=== PATIENT | male | born 1930 | race Caucasian/White ===

== ENCOUNTER → 2016-03-17 | Outpatient (CLI) | payer MEDICARE ==
[~2016-03-17] MED LIST: ASPI81CH37 CHEW; LESC80TA; LISI-515 PO; LISI-591; PROT40TA PO; VIAG25TA; [UNRECOGNIZED DRUG - CODE] PO
[2016-03-17 08:23] LABS: MEAN CORPUSCULAR HEMOGLOBIN 29.5 PG (27.0-34.0); MEAN CORPUSCULAR HGB CONC 34.3 % (32.0-36.0); PLATELET COUNT 231 TH/MM3 (150-450); RED CELL DISTRIBUTION WIDTH 12.4 % (11.6-17.2); REVIEW FLAG FINAL; WHITE BLOOD COUNT 7.1 TH/MM3 (4.0-11.0)
[2016-03-17 08:47] LABS: ALT (GPT) 23 U/L (12-78); ANION GAP 10 MEQ/L (5-15); AST (GOT) 27 U/L (15-37); BICARBONATE 28.4 MEQ/L (21.0-32.0); BLOOD UREA NITROGEN 25 MG/DL (7-18); CHLORIDE 104 MEQ/L (98-107); GLOMERULAR FILTRATION RATE 44 ML/MIN (>89); GLUCOSE,FASTING 91 MG/DL (74-99); POTASSIUM 3.9 MEQ/L (3.5-5.1); SODIUM (NA) 142 MEQ/L (136-145)
[2016-03-17 08:50] LABS: ALKALINE PHOSPHATASE 78 U/L (45-117); HDL CHOLESTEROL 47.2 MG/DL (40.0-60.0); LDL CHOLESTEROL 36 MG/DL (0-99); LDL CHOLESTEROL DIRECT 49 MG/DL (0-99)
== END ==
LOC: CLAB 08:07
PROVIDERS: ATTEND Internal Medicine
DX: I10 Essential (primary) hypertension (principal); E78.5 Hyperlipidemia, unspecified
CPT/HCPCS: 36415; 80053; 80061; 83721; 85027

== ENCOUNTER 2016-04-01 12:57 | Emergency (ER) | payer MEDICARE ==
[~2016-04-01 12:57] MED LIST changes: -ASPI81CH37 CHEW; -LISI-515 PO; -PROT40TA PO; -[UNRECOGNIZED DRUG - CODE] PO
[2016-04-01 12:59] VITALS: BP 134/61; PULSE 115; RESP 14; TEMP 98.6; O2SAT 97
== END 2016-04-01 14:45 | disposition left against medical advice (07) ==
LOC: NED 12:57
DX: T14.8 Other injury of unspecified body region (principal)
CPT/HCPCS: 99281

== ENCOUNTER 2016-04-28 14:44 | Inpatient (IN) | payer MEDICARE, BC ==
[2016-04-28] VITALS (7 sets, daily range): BP systolic 96–117; BP diastolic 59–74; PULSE 78–105; RESP 16–20; TEMP 97.9; O2SAT 92–99
[~2016-04-28] VITALS: Ht 177.8 cm; Wt 81.5 kg
[2016-04-28] MEDS ORDERED: SODIUM CHLORIDE 0.9% FLUSH 5 ML FLUSH IVF PRN (15:00)
--- NOTE | 2016-04-28 15:08 | PD ---
HPI . Loss of appetite Chief Complaint: GI Complaint Time Seen by Provider: 14:55 Travel History International Travel<30 days: No Contact w/Intl Traveler<30days: No Traveled to known affect area: No History of Present Illness HPI Patient presents with a three-week history of loss of appetite. He states that he just does not have the desire to eat. Having any mechanical issue with eating. He denies any abdominal pain. He is not having any vomiting or diarrhea. He states that he is not depressed. He reports adequate access to food. He reports no recent change in his social life. He admits to a 20-30 pound weight loss over the last 3 weeks. [facility] Past Medical History Cardiovascular Problems: Yes High Cholesterol: Yes Diabetes: No Diminished Hearing: No Hypertension: Yes Past Surgical History Cardiac Surgery: Yes (CARIDAC STENT) Other Surgery: Yes (KIDNEY STONES) Social History Alcohol Use: Yes (2 MARTINIS PER NIGHT) Tobacco Use: No Substance Use: No Allergies-Medications (Allergen,Severity, Reaction): Coded Allergies: No Known Allergies (Verified , 04/28/16) Reported Meds & Prescriptions Reported Meds & Active Scripts Active Reported Aspirin Low Dose (Aspirin) 81 Mg Chew 81 Mg CHEW DAILY Lescol (Fluvastatin Sodium) 20 Mg Cap 80 Mg PO DAILY Lisinopril 20 Mg Tab 20 Mg PO DAILY Review of Systems Except as stated in HPI: all other systems reviewed are Neg General / Constitutional: No: Fever, Chills HENT: No: Headaches Cardiovascular: No: Chest Pain or Discomfort Respiratory: No: Cough, Shortness of Breath Gastrointestinal: Positive: Loss of Appetite, No: Nausea, Vomiting, Diarrhea, Abdominal Pain, Indigestion, Dysphagia Genitourinary: No: Urgency, Frequency, Dysuria Neurologic: No: Weakness, Dizziness Psychiatric: No: Depression Physical Exam Narrative GENERAL: Slightly disheveled appearing older man who is in no acute distress. He answers questions with very short answers. SKIN: Warm and dry. Good skin turgor. HEAD: Atraumatic. Normocephalic. EYES: Pupils equal and round. Conjunctivae are pink. ENT: No nasal bleeding or discharge. Mucous membranes pink and moist. NECK: Trachea midline. Neck is supple. CARDIOVASCULAR: Regular rate and rhythm. Heart rate is 105. RESPIRATORY: No accessory muscle use. Lungs are clear with full air movement throughout. GASTROINTESTINAL: Abdomen soft, non-tender, nondistended. MUSCULOSKELETAL: No obvious deformities. No edema. NEUROLOGICAL: Awake and alert. No obvious cranial nerve deficits. Motor grossly within normal limits. Normal speech. PSYCHIATRIC: Appropriate mood and affect; insight and judgment normal. Data Data Last Documented VS Vital Signs Date Time Temp Pulse Resp B/P Pulse Ox O2 Delivery O2 Flow Rate FiO2 04/28/16 15:15 97 20 111/71 97 Room Air 04/28/16 14:46 97.9 Orders Complete Blood Count With Diff (04/28/16 14:56) Comprehensive Metabolic Panel (04/28/16 14:56) Lipase (04/28/16 14:56) Urinalysis - C+S If Indicated (04/28/16 14:56) Iv Access Insert/Monitor (04/28/16 14:56) Ecg Monitoring (04/28/16 14:56) Oximetry (04/28/16 14:56) Sodium Chloride 0.9% Flush (Ns Flush) (04/28/16 15:00) Electrocardiogram (04/28/16 14:56) Labs Laboratory Tests Test 04/28/16 04/28/16 15:10 15:18 White Blood Count 7.2 TH/MM3 Red Blood Count 5.33 MIL/MM3 Hemoglobin 15.3 GM/DL Hematocrit 46.2 % Mean Corpuscular Volume 86.7 FL Mean Corpuscular Hemoglobin 28.7 PG Mean Corpuscular Hemoglobin 33.1 % Concent Red Cell Distribution Width 12.0 % Platelet Count 246 TH/MM3 Mean Platelet Volume 8.2 FL Neutrophils (%) (Auto) 77.9 % Lymphocytes (%) (Auto) 10.5 % Monocytes (%) (Auto) 9.1 % Eosinophils (%) (Auto) 1.7 % Basophils (%) (Auto) 0.8 % Neutrophils # (Auto) 5.5 TH/MM3 Lymphocytes # (Auto) 0.8 TH/MM3 Monocytes # (Auto) 0.7 TH/MM3 Eosinophils # (Auto) 0.1 TH/MM3 Basophils # (Auto) 0.1 TH/MM3 CBC Comment DIFF FINAL Differential Comment Urine Collection Type CLEAN CATCH Urine Color YELLOW Urine Turbidity CLEAR Urine pH 5.5 Urine Specific [place] 1.016 Urine Protein 30 mg/dL Urine Glucose (UA) NEG mg/dL Urine Ketones 15 mg/dL Urine Occult Blood TRACE Urine Nitrite NEG Urine Bilirubin NEG Urine Leukocyte Esterase NEG Urine RBC 0-3 /hpf Urine WBC 0-2 /hpf Urine Squamous Epithelial 6-8 /hpf Cells Urine Amorphous Sediment SMALL Urine Fine Granular Casts 10-15 /lpf Microscopic Urinalysis Comment CULT NOT INDICATED Urine Collection Time 15:18 [facility] Medical Decision Making Medical Screen Exam Complete: Yes Emergency Medical Condition: Yes Interpretation(s) EKG shows a sinus rhythm with a right bundle branch block. He has no old EKGs for comparison. Differential Diagnosis Differential diagnosis includes depression, metabolic disorder, infection, obstruction Narrative Course Patient presents for the evaluation of loss of appetite. CBC Diagram 04/28/16 15:10 UA is basically negative. Care is being turned over to Dr. Morales. Diagnosis Primary Impression: Anorexia Faith Arango MD Apr 28, 2016 15:08
[2016-04-28 15:17] LABS: AUTOMATED NEUTROPHIL # 5.5 TH/MM3 (1.8-7.7); BASOPHIL # 0.1 TH/MM3 (0-0.2); BASOPHIL % 0.8 % (0.0-2.0); EOSINOPHIL # 0.1 TH/MM3 (0-0.4); EOSINOPHIL % 1.7 % (0.0-4.0); HEMATOCRIT 46.2 % (39.0-51.0); HEMO FLAGS DIFF FINAL; LYMPH % 10.5 % (9.0-44.0); LYMPHOCYTE # 0.8 TH/MM3 (1.0-4.8); MEAN CELL VOLUME 86.7 FL (80.0-100.0); MEAN CORPUSCULAR HEMOGLOBIN 28.7 PG (27.0-34.0); MEAN CORPUSCULAR HGB CONC 33.1 % (32.0-36.0); MONO % 9.1 % (0.0-8.0); NEUT % 77.9 % (16.0-70.0); PLATELET COUNT 246 TH/MM3 (150-450); RED BLOOD COUNT 5.33 MIL/MM3 (4.50-5.90); WHITE BLOOD COUNT 7.2 TH/MM3 (4.0-11.0)
[2016-04-28 15:18] LABS: BLOOD, URINE TRACE (NEG); GLUCOSE,URINE NEG (NEG); KETONE, URINE 15 mg/dL (NEG); NITRITE,URINE NEG (NEG); PH, URINE 5.5 (5.0-8.5)
[2016-04-28] MEDS ORDERED: LISI-515 PO (15:25)
[2016-04-28] MEDS ORDERED: [UNRECOGNIZED DRUG - CODE] PO (15:25)
[2016-04-28] MEDS ORDERED: ASPI81CH37 CHEW (15:26)
[2016-04-28 15:34] LABS: METHOD OF COLLECTION CLEAN CATCH; RBC, URINE 0-3 /hpf (0-3); URINE COLOR YELLOW (YELLW/STRAW); WBC, URINE 0-2 /hpf (0-5)
[2016-04-28 15:35] LABS: COMMENT (UR) CULT NOT INDICATED; CULTURE IF INDICATED CULT NOT INDICATED
[2016-04-28 15:43] LABS: CHLORIDE 102 MEQ/L (98-107); POTASSIUM 3.9 MEQ/L (3.5-5.1); SODIUM (NA) 142 MEQ/L (136-145)
[2016-04-28 15:47] LABS: ANION GAP 20 MEQ/L (5-15); BICARBONATE 20.2 MEQ/L (21.0-32.0); BLOOD UREA NITROGEN 45 MG/DL (7-18)
[2016-04-28 15:49] LABS: ALT (GPT) 22 U/L (12-78); AST (GOT) 21 U/L (15-37)
[2016-04-28 15:50] LABS: GLOMERULAR FILTRATION RATE 27 ML/MIN (>89)
[2016-04-28 15:52] LABS: ALKALINE PHOSPHATASE 98 U/L (45-117)
--- NOTE | 2016-04-28 16:29 | RADHPO ---
EXAM DATE/TIME: 04/28/2016 16:04 [facility] COMPARISON: No previous studies available for comparison. INDICATIONS : Loss of appetite for three weeks. ORAL CONTRAST: No oral contrast ingested. RADIATION DOSE: 21.79 CTDIvol (mGy) MEDICAL HISTORY : Cardiovascular disease. Hypertension. Hypercholesterolemia. SURGICAL HISTORY : None. ENCOUNTER: Initial ACUITY: 3 weeks PAIN SCALE: 0/10 LOCATION: abdomen TECHNIQUE: Volumetric scanning of the abdomen and pelvis was performed. Using automated exposure control and ad justment of the mA and/or kV according to patient size, radiation dose was kept as low as reasonably achievable to obtain optimal diagnostic quality images. FINDINGS: LOWER LUNGS: The visualized lower lungs are clear. LIVER: Homogeneous density without lesion. There is no dilation of the biliary tree. There is minimal depen dent density in the gallbladder which may reflect presence of tiny stones or radiodense sludge. No ev idence of wall thickening or pericholecystic inflammation.. SPLEEN: Normal size without lesion. PANCREAS: Within normal limits. KIDNEYS: Tiny renal cysts. Tiny nonobstructing collecting system stones present bilaterally. ADRENAL GLANDS: Within normal limits. VASCULAR: There is no aortic aneurysm. BOWEL/MESENTERY: Distal colonic diverticula. No evidence of abnormal dilatation, wall thickening or focal inflammatory change. No evidence of ascites or pneumoperitoneum. ABDOMINAL WALL: Within normal limits. RETROPERITONEUM: There is no lymphadenopathy. BLADDER: No wall thickening or mass. REPRODUCTIVE: Within normal limits. INGUINAL: There is no lymphadenopathy or hernia. MUSCULOSKELETAL: Severe S-shaped thoracolumbar scoliosis. Degenerative changes in the spine and hips. CONCLUSION: No acute CT findings in the abdomen or pelvis. Christo Rosado MD on April 28, 2016 at 16:24 Board Certified Radiologist. This report was verified electronically.
--- NOTE | 2016-04-28 16:41 | PD ---
Physical Exam Narrative Patient was seen by ED physician and signed out to me. Data Data Last Documented VS Vital Signs Date Time Temp Pulse Resp B/P Pulse Ox O2 Delivery O2 Flow Rate FiO2 04/28/16 16:33 95 20 96/73 92 Room Air 04/28/16 14:46 97.9 Orders Complete Blood Count With Diff (04/28/16 14:56) Comprehensive Metabolic Panel (04/28/16 14:56) Lipase (04/28/16 14:56) Urinalysis - C+S If Indicated (04/28/16 14:56) Iv Access Insert/Monitor (04/28/16 14:56) Ecg Monitoring (04/28/16 14:56) Oximetry (04/28/16 14:56) Sodium Chloride 0.9% Flush (Ns Flush) (04/28/16 15:00) Electrocardiogram (04/28/16 14:56) Ct Abd/Pel W/O Iv Contrast (04/28/16 15:59) Ns (Bolus) Inj (04/28/16 17:00) Labs Laboratory Tests Test 04/28/16 04/28/16 15:10 15:18 White Blood Count 7.2 TH/MM3 Red Blood Count 5.33 MIL/MM3 Hemoglobin 15.3 GM/DL Hematocrit 46.2 % Mean Corpuscular Volume 86.7 FL Mean Corpuscular Hemoglobin 28.7 PG Mean Corpuscular Hemoglobin 33.1 % Concent Red Cell Distribution Width 12.0 % Platelet Count 246 TH/MM3 Mean Platelet Volume 8.2 FL Neutrophils (%) (Auto) 77.9 % Lymphocytes (%) (Auto) 10.5 % Monocytes (%) (Auto) 9.1 % Eosinophils (%) (Auto) 1.7 % Basophils (%) (Auto) 0.8 % Neutrophils # (Auto) 5.5 TH/MM3 Lymphocytes # (Auto) 0.8 TH/MM3 Monocytes # (Auto) 0.7 TH/MM3 Eosinophils # (Auto) 0.1 TH/MM3 Basophils # (Auto) 0.1 TH/MM3 CBC Comment DIFF FINAL Differential Comment Sodium Level 142 MEQ/L Potassium Level 3.9 MEQ/L Chloride Level 102 MEQ/L Carbon Dioxide Level 20.2 MEQ/L Anion Gap 20 MEQ/L Blood Urea Nitrogen 45 MG/DL Creatinine 2.30 MG/DL Estimat Glomerular Filtration 27 ML/MIN Rate Random Glucose 89 MG/DL Calcium Level 9.6 MG/DL Total Bilirubin 1.0 MG/DL Aspartate Amino Transf 21 U/L (AST/SGOT) Alanine Aminotransferase 22 U/L (ALT/SGPT) Alkaline Phosphatase 98 U/L Total Protein 8.0 GM/DL Albumin 3.5 GM/DL Lipase 406 U/L Urine Collection Type CLEAN CATCH Urine Color YELLOW Urine Turbidity CLEAR Urine pH 5.5 Urine Specific [place] 1.016 Urine Protein 30 mg/dL Urine Glucose (UA) NEG mg/dL Urine Ketones 15 mg/dL Urine Occult Blood TRACE Urine Nitrite NEG Urine Bilirubin NEG Urine Leukocyte Esterase NEG Urine RBC 0-3 /hpf Urine WBC 0-2 /hpf Urine Squamous Epithelial 6-8 /hpf Cells Urine Amorphous Sediment SMALL Urine Fine Granular Casts 10-15 /lpf Microscopic Urinalysis Comment CULT NOT INDICATED Urine Collection Time 15:18 MDM Supervised Visit with [facility]: No Interpretation(s) 1637 PM. CBC within normal limit. BUN 45. Creatinine 2.3. GFR 27. Lipase 406. UA is positive for proteins, ketones, negative WBC RBC. CT scan abdomen and pelvis without contrast shows no acute CT findings. Narrative Course Normal saline solution 1 L IV bolus. Normal saline solution 100 cc an hour. Diagnosis Primary Impression: Dehydration Additional Impression: Acute kidney injury Admitting Information Admitting Physician Requests: Observation Catracho Morales MD Apr 28, 2016 16:41
[2016-04-28] MEDS ORDERED: SODIUM CHLOR 0.9% 1000 ML INJ 1,000 ML IV SCH (16:50)
[2016-04-28] MEDS ORDERED: SODIUM CHLORIDE 0.9% FLUSH 5 ML FLUSH FLUSH PRN (17:00)
[2016-04-28] MEDS ORDERED: SODIUM CHLOR 0.9% 1000 ML INJ 1,000 ML IV ONE ×3 (17:00→18:00)
[2016-04-28] MEDS ORDERED: ONDANSETRON HCL 4 MG/2 ML VIAL IVP PRN (17:00)
--- NOTE | 2016-04-28 17:05 | HHI.HP ---
[facility] Mel Conrad MD Admission Diagnosis dehydration. Acute kidney injury. Diagnoses: Chief Complaint: Dehydration Travel History International Travel<30 Days: No Contact w/Intl Traveler <30 Da: No Traveled to Known Affected Are: No History of Present Illness Patient is a 86-year-old gentleman was quite pleasant and says that the last 2 weeks he is unable to eat. He notes no abdominal pain nausea or vomiting. Bloody stool. He does appear dehydrated with hypotension and acute kidney injury. He says for 3 weeks he just hasn't had appetite and his friend told him go to his doctor so he went and his doctor sent to the emergency room. Patient says otherwise he is doing "fine". He has no other medical complaints. On further exam patient does appear with elevated anion gap and with some evidence of acidosis probably from acute kidney injury. Review of Systems Constitutional: DENIES: Diaphoretic episodes, Fatigue, Fever, Weight gain, Weight loss, Chills, Dizziness, Change in appetite, Night Sweats Endocrine: DENIES: Heat/cold intolerance, Polydipsia, Polyuria, Polyphagia Eyes: DENIES: Blurred vision, Diplopia, Eye inflammation, Eye pain, Vision loss , Photosensitivity, Double Vision Ears, nose, mouth, throat: DENIES: Tinnitus, Hearing loss, Vertigo, Nasal discharge, Oral lesions, Throat pain, Hoarseness, Ear Pain, Running Nose, Epistaxis, Sinus Pain, Toothache, Odynophagia Respiratory: DENIES: Apneas, Cough, Snoring, Wheezing, Hemoptysis, Sputum production, Shortness of breath Cardiovascular: DENIES: Chest pain, Palpitations, Syncope, Dyspnea on Exertion , PND, Lower Extremity Edema, Orthopnea, Claudication Gastrointestinal: COMPLAINS OF: Anorexia, DENIES: Abdominal pain, Black stools , Bloody stools, Constipation, Diarrhea, Nausea, Vomiting, Difficulty Swallowing Genitourinary: DENIES: Sexual dysfunction, Urinary frequency, Urinary incontinence, Urgency, Hematuria, Dysuria, Nocturia, Penile Discharge, Testicular Pain, Testicular Swelling Musculoskeletal: DENIES: Joint pain, Muscle aches, Stiffness, Joint Swelling, Back pain, Neck pain Integumentary: DENIES: Abnormal pigmentation, Nail changes, Pruritus, Rash Hematologic/lymphatic: DENIES: Bruising, Lymphadenopathy Immunologic/allergic: DENIES: Eczema, Urticaria Neurologic: DENIES: Abnormal gait, Headache, Localized weakness, Paresthesias, Seizures, Speech Problems, Tremor, Poor Balance Psychiatric: DENIES: Anxiety, Confusion, Mood changes, Depression, Hallucinations, Agitation, Suicidal Ideation, Homicidal Ideation, Delusions Past Family Social History Past Medical History Coronary artery disease with stent Hypertension hyperlipidemia Past Surgical History Cardiac stent Reported Medications Reviewed and the medical record Allergies: Coded Allergies: No Known Allergies (Verified , 04/28/16) Active Ordered Medications Reviewed and the medical record Family History Patient denies any family history of any medical problems Social History Lives alone, several martinis nightly, no tobacco Physical Exam Vital Signs Vital Signs Date Time Temp Pulse Resp B/P Pulse Ox O2 Delivery O2 Flow Rate FiO2 04/28/16 16:33 95 20 96/73 92 Room Air 04/28/16 15:15 97 20 111/71 97 Room Air 04/28/16 15:15 97 Room Air 04/28/16 14:46 97.9 105 16 106/69 97 Physical Exam GENERAL: This is a well-nourished, well-developed patient, in no apparent distress. Pleasant not cachectic SKIN: No rashes, ecchymoses or lesions. Cool and dry. HEAD: Atraumatic. Normocephalic. No temporal or scalp tenderness. EYES: Pupils equal round and reactive. Extraocular motions intact. No scleral icterus. No injection or drainage. ENT: Nose without bleeding, purulent drainage or septal hematoma. Throat without erythema, tonsillar hypertrophy or exudate. Uvula midline. Airway patent. NECK: Trachea midline. No JVD or lymphadenopathy. Supple, nontender, no meningeal signs. CARDIOVASCULAR: Regular rate and rhythm without murmurs, gallops, or rubs. RESPIRATORY: Clear to auscultation. Breath sounds equal bilaterally. No wheezes , rales, or rhonchi. GASTROINTESTINAL: Abdomen soft, non-tender, nondistended. No hepato-splenomegaly , or palpable masses. No guarding. Hypoactive bowel sounds MUSCULOSKELETAL: Extremities without clubbing, cyanosis, or edema. No joint tenderness, effusion, or edema noted. No calf tenderness. Negative Homans sign bilaterally. NEUROLOGICAL: Awake and alert. Cranial nerves II through XII intact. Motor and sensory grossly within normal limits. Five out of 5 muscle strength in all muscle groups. Normal speech. Laboratory Laboratory Tests Test 04/28/16 04/28/16 15:10 15:18 White Blood Count 7.2 Red Blood Count 5.33 Hemoglobin 15.3 Hematocrit 46.2 Mean Corpuscular Volume 86.7 Mean Corpuscular Hemoglobin 28.7 Mean Corpuscular Hemoglobin 33.1 Concent Red Cell Distribution Width 12.0 Platelet Count 246 Mean Platelet Volume 8.2 Neutrophils (%) (Auto) 77.9 Lymphocytes (%) (Auto) 10.5 Monocytes (%) (Auto) 9.1 Eosinophils (%) (Auto) 1.7 Basophils (%) (Auto) 0.8 Neutrophils # (Auto) 5.5 Lymphocytes # (Auto) 0.8 Monocytes # (Auto) 0.7 Eosinophils # (Auto) 0.1 Basophils # (Auto) 0.1 CBC Comment DIFF FINAL Differential Comment Sodium Level 142 Potassium Level 3.9 Chloride Level 102 Carbon Dioxide Level 20.2 Anion Gap 20 Blood Urea Nitrogen 45 Creatinine 2.30 Estimat Glomerular Filtration 27 Rate Random Glucose 89 Calcium Level 9.6 Total Bilirubin 1.0 Aspartate Amino Transf 21 (AST/SGOT) Alanine Aminotransferase 22 (ALT/SGPT) Alkaline Phosphatase 98 Total Protein 8.0 Albumin 3.5 Lipase 406 Urine Collection Type CLEAN CATCH Urine Color YELLOW Urine Turbidity CLEAR Urine pH 5.5 Urine Specific [place] 1.016 Urine Protein 30 Urine Glucose (UA) NEG Urine Ketones 15 Urine Occult Blood TRACE Urine Nitrite NEG Urine Bilirubin NEG Urine Leukocyte Esterase NEG Urine RBC 0-3 Urine WBC 0-2 Urine Squamous Epithelial 6-8 Cells Urine Amorphous Sediment SMALL Urine Fine Granular Casts 10-15 Microscopic Urinalysis Comment CULT NOT INDICATED Urine Collection Time 15:18 Result Diagram: 04/28/16 1510 04/28/[address] abdomen pelvis on my review shows no acute intra-abdominal findings Assessment and Plan Problem List: (1) Acute kidney injury ICD Code: N17.9 Status: Acute Plan: Likely due to dehydration, we'll continue IV hydration, follow renal ultrasound (2) Dehydration ICD Code: E86.0 Status: Acute Plan: Patient reports not eating in 3 weeks. 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
[2016-04-28 17:11] LABS: BLOOD GAS BASE EXCESS -9.3 mmol/L (-2-2); BLOOD GAS CARBOXYHEMOGLOBIN 1.9 % (0-4); BLOOD GAS HCO3 13 mmol/L (22-26); BLOOD GAS METHEMOGLOBIN 1.3 % (0-2); BLOOD GAS O2 HGB SATURATION 96 % (90-100); BLOOD GAS PCO2 17 mmHG (38-42); BLOOD GAS PO2 122 mmHG (61-120); BLOOD GAS TOTAL HGB 14.7 G/DL (12.0-16.0); TEMP CORR TO 98.6
[2016-04-28 17:13] LABS: CRITICAL VALUE YES; DRAW SITE RT RADIAL; FIO2 21 %; NUMBER OF ARTERIAL PUNCTURES 1; OXYGEN DEVICE ROOM AIR; STAT NO; ULNAR PULSE PRESENT
[2016-04-28 17:28] LABS: AMPHETAMINE, URINE NEG (NEG)
--- NOTE | 2016-04-28 17:28 | RADHPO ---
EXAM DATE/TIME: 04/28/2016 17:17 [facility] COMPARISON: No previous studies available for comparison. INDICATIONS : Altered mental status. RADIATION DOSE: 61.62 CTDIvol (mGy) MEDICAL HISTORY : Hypertension. SURGICAL HISTORY : None. ENCOUNTER: Initial ACUITY: 1 day PAIN SCALE: 0/10 LOCATION: cranial TECHNIQUE: Multiple contiguous axial images were obtained of the head. Using automated exposure control and adj ustment of the mA and/or kV according to patient size, radiation dose was kept as low as reasonably a chievable to obtain optimal diagnostic quality images. FINDINGS: CEREBRUM: The ventricles are normal for age. Age appropriate atrophy with mild age-appropriate microvascular de ep white matter ischemic demyelinization. No evidence of midline shift, mass lesion, hemorrhage or a cute infarction. No extra-axial fluid collections are seen. POSTERIOR FOSSA: The cerebellum and brainstem are intact. The 4th ventricle is midline. The cerebellopontine angle i s unremarkable. EXTRACRANIAL: The visualized portion of the orbits is intact. SKULL: The calvaria is intact. No evidence of skull fracture. CONCLUSION: Normal examination for a patient of this age. Warner Ricci MD on April 28, 2016 at 17:25 Board Certified Radiologist. This report was verified electronically.
[2016-04-28 17:29] LABS: BARBITURATES, URINE NEG (NEG)
--- NOTE | 2016-04-28 17:34 | RADHPO ---
EXAM DATE/TIME: 04/28/2016 17:12 [facility] COMPARISON: CT ABDOMEN & PELVIS W/O CONTRAST, April 28, 2016, 16:04. INDICATIONS : Chest pain. MEDICAL HISTORY : Hypertension. SURGICAL HISTORY : None. ENCOUNTER: Initial ACUITY: 1 day PAIN SCORE: 5/10 LOCATION: Bilateral chest FINDINGS: PA and lateral views of the chest demonstrate the lungs to be symmetrically aerated without evidence of mass, infiltrate or effusion. The cardiomediastinal contours are unremarkable. Osseous structure s are intact with marked scoliosis of the thoracic or lumbar spine to left and secondary chest deform ity. CONCLUSION: No acute disease. Warner Ricci MD on April 28, 2016 at 17:32 Board Certified Radiologist. This report was verified electronically.
[2016-04-28 17:39] LABS: COCAINE, URINE NEG (NEG)
[2016-04-28] MEDS ORDERED: SODIUM BICARBONATE 8.4% INJ 50 MEQ in SODIUM CHLOR 0.45% 1000 ML INJ 1,000 ML IV SCH (17:45)
[2016-04-28] MEDS: PANTOPRAZOLE SODIUM 40 MG VIAL IV PUSH SCH (17:51)
[2016-04-28] MEDS: SODIUM CHLOR 0.9% 1000 ML INJ 1,000 ML IV SCH (17:58)
[2016-04-28 21:07] LABS: BLOOD GAS BASE EXCESS -10.1 mmol/L (-2-2); BLOOD GAS CARBOXYHEMOGLOBIN 1.6 % (0-4); BLOOD GAS HCO3 14 mmol/L (22-26); BLOOD GAS METHEMOGLOBIN 1.4 % (0-2); BLOOD GAS O2 HGB SATURATION 95 % (90-100); BLOOD GAS OXYGEN CONTENT 17.2 Vol % (12.0-20.0); BLOOD GAS PCO2 25 mmHG (38-42); BLOOD GAS PO2 103 mmHG (61-120); BLOOD GAS TOTAL HGB 12.8 G/DL (12.0-16.0); CRITICAL VALUE YES; DRAW SITE RT RADIAL; FIO2 21 %; NUMBER OF ARTERIAL PUNCTURES 1; STAT NO; TEMP CORR TO 98.6; ULNAR PULSE Y
[2016-04-28 22:35] LABS: POTASSIUM 3.8 MEQ/L (3.5-5.1)
[2016-04-28 22:38] LABS: BICARBONATE 18.1 MEQ/L (21.0-32.0)
--- NOTE | 2016-04-28 23:01 | EKG ---
Date Performed: 04/28/2016 Time Performed: 14:58:50 PTAGE: 86 years EKG: Sinus tachycardia Right bundle branch block Inferior/lateral ST-T changes are nonspecific L ow QRS voltages in precordial leads Abnormal ECG NO PREVIOUS TRACING DOCTOR: Duane Hennessy Interpretating Date/Time 04/28/2016 22:59:46
[2016-04-29] VITALS (7 sets, daily range): BP systolic 112–133; BP diastolic 63–78; PULSE 69–74; RESP 16–20; TEMP 97.9–98.2; O2SAT 95–98
[2016-04-29 05:30] LABS: BASOPHIL % 0.7 % (0.0-2.0); EOSINOPHIL # 0.2 TH/MM3 (0-0.4); EOSINOPHIL % 2.8 % (0.0-4.0); HEMATOCRIT 39.2 % (39.0-51.0); HEMO FLAGS DIFF FINAL; LYMPH % 13.8 % (9.0-44.0); LYMPHOCYTE # 0.8 TH/MM3 (1.0-4.8); MEAN CELL VOLUME 87.1 FL (80.0-100.0); MEAN CORPUSCULAR HEMOGLOBIN 29.1 PG (27.0-34.0); MEAN CORPUSCULAR HGB CONC 33.4 % (32.0-36.0); MONO % 12.3 % (0.0-8.0); NEUT % 70.4 % (16.0-70.0); PLATELET COUNT 169 TH/MM3 (150-450); RED CELL DISTRIBUTION WIDTH 11.8 % (11.6-17.2); WHITE BLOOD COUNT 5.7 TH/MM3 (4.0-11.0)
[2016-04-29 06:01] LABS: POTASSIUM 3.9 MEQ/L (3.5-5.1)
[2016-04-29 06:04] LABS: BICARBONATE 21.4 MEQ/L (21.0-32.0)
--- NOTE | 2016-04-29 10:53 | HHI.PR ---
Subjective Remarks Patient seen today in follow-up for failure to thrive and anorexia. Patient says he has no desire to eat and food makes him nauseous. He is drinking liquids without difficulty. She has improvement in electrolytes and renal function. I discussed the patient's primary care doctor, Dr. souza who was concerned about the patient's kidney failure and who originally sent him to the emergency room I did update him on the patient's progress and improvement. Patient has no psychiatric history. Although he does drink a bit is not intoxicated. Patient is not tearful sad and does not desire to harm himself Objective Vitals Vital Signs Date Time Temp Pulse Resp B/P Pulse Ox O2 Delivery O2 Flow Rate FiO2 04/29/16 08:00 98.1 69 18 125/76 96 04/29/16 07:00 96 Room Air 04/29/16 07:00 74 16 112/69 96 Room Air 04/29/16 05:00 69 16 116/63 97 Room Air 04/29/16 01:10 74 16 119/72 98 Room Air 04/28/16 22:00 78 16 114/72 98 Room Air 04/28/16 19:18 84 16 117/74 97 Room Air 04/28/16 18:46 84 18 115/66 99 Room Air 04/28/16 17:55 84 18 104/59 97 Room Air 04/28/16 16:33 95 20 96/73 92 Room Air 04/28/16 15:15 97 20 111/71 97 Room Air 04/28/16 15:15 97 Room Air 04/28/16 14:46 97.9 105 16 106/69 97 I/O 04/28/16 04/28/16 04/28/16 04/29/16 04/29/16 04/29/16 07:00 15:00 23:00 07:00 15:00 23:00 Intake Total 4650 ml Output Total 1000 ml 1150 ml Balance 3650 ml -1150 ml Intake Oral 650 ml IV Total 4000 ml Output Urine Total 1000 ml 1150 ml # Voids 2 7 Result Diagram: 04/29/16 0510 04/29/16 0510 Imaging Last Impressions Abdomen/Pelvis CT 04/28/16 1559 Signed Impressions: Service Date/Time: Thursday, April 28, 2016 16:04 - CONCLUSION: No acute CT findings in the abdomen or pelvis. Christo Rosado MD Head CT 04/28/16 0000 Signed Impressions: Service Date/Time: Thursday, April 28, 2016 17:17 - CONCLUSION: Normal examination for a patient of this age. Warner Ricci MD Chest X-Ray 04/28/16 0000 Signed Impressions: Service Date/Time: Thursday, April 28, 2016 17:12 - CONCLUSION: No acute disease. Warner Ricci MD Objective Remarks GENERAL: This is a well-nourished, well-developed patient, in no apparent distress. CARDIOVASCULAR: Regular rate and rhythm without murmurs, gallops, or rubs. RESPIRATORY: Clear to auscultation. Breath sounds equal bilaterally. No wheezes , rales, or rhonchi. GASTROINTESTINAL: Abdomen soft, non-tender, nondistended. Normal active bowel sounds MUSCULOSKELETAL: Extremities without clubbing, cyanosis, or edema. NEURO: Alert & Oriented x4 to person, place, time, situation. Moves all ext x4 A/P Problem List: (1) Acute kidney injury ICD Code: N17.9 Status: Acute Plan: Improved Likely due to dehydration, we'll continue IV hydration, (2) Dehydration ICD Code: E86.0 Status: Acute Plan: Patient reports not eating in 3 weeks. He reports no appetite Swallow study pending Continue postop pump inhibitor, CT of the head unremarkable on my review (3) HTN (hypertension) ICD Code: I10 Status: Acute Plan: Will hold lisinopril due to acute kidney injury and hypotension Assessment and Plan Patient will require further inpatient care due to severe dehydration and anorexia Dietary consult pending We'll add liquid nutrients and multivitamins Discharge Planning Pending progress Physician Certification 2 Midnight Certification Type: Admission for Inpatient Services Order for Inpatient Services The services are ordered in accordance with Medicare regulations or non- Medicare payer requirements, as applicable. In the case of services not specified as inpatient-only, they are appropriately provided as inpatient services in accordance with the 2-midnight benchmark. Estimated LOS (days): 3 3 days is the estimated time the patient will need to remain in the hospital, assuming treatment plan goals are met and no additional complications. Post-Hospital Plan: Home Sunni Dowling MD Apr 29, 2016 10:53
[2016-04-29] MEDS: MULTIVITAMIN TAB PO SCH (12:00)
[2016-04-29] MEDS: SODIUM CHLORIDE 0.9% FLUSH 5 ML FLUSH FLUSH SCH ×2 (15:04→21:00)
[2016-04-29] MEDS: SODIUM CHLOR 0.9% 1000 ML INJ 1,000 ML IV SCH (15:04)
[2016-04-29] MEDS: PANTOPRAZOLE SODIUM 40 MG VIAL IV PUSH SCH (15:46)
[2016-04-30] VITALS: BP 106/70; PULSE 78; RESP 20; TEMP 97.9; O2SAT 97
[2016-04-30 07:07] LABS: POTASSIUM 4.1 MEQ/L (3.5-5.1)
[2016-04-30 07:13] LABS: BICARBONATE 23.4 MEQ/L (21.0-32.0)
[2016-04-30 08:08] VITALS: BP 115/60; PULSE 82; RESP 18; TEMP 98; O2SAT 99
[2016-04-30] MEDS: SODIUM CHLORIDE 0.9% FLUSH 5 ML FLUSH FLUSH SCH (08:16)
[2016-04-30] MEDS: MULTIVITAMIN TAB PO SCH (09:06)
[2016-04-30] MEDS ORDERED: PROT40TA PO (10:19)
--- NOTE | 2016-04-30 10:19 | HHI.FF ---
Face to Face Verification Diagnosis: (1) Anorexia (2) HTN (hypertension) Home Health Nursing Order: Medical education X Ray Consultant Order: To Evaluate: Living conditions/environment, Support services Order: To Provide: Long range planning, Community services I have seen patient Noel Ponce on 04/30/16. My clinical findings support the need for the requested home health care services because: Med compliance is questionable I certify that my clinical findings support that this patient is homebound because: Impaired cognitive ability/safety Need for psychosocial assistance Sunni Dowling MD Apr 30, 2016 10:19
--- NOTE | 2016-04-30 10:21 | HHI.DS ---
cc: Mel Conrad MD Discharge Summary Admission Date Apr 29, 2016 at 10:52 Discharge Date: Apr 30, 2016 Admitting Diagnosis dehydration. Acute kidney injury. (1) Acute kidney injury ICD Code: N17.9 (2) Dehydration ICD Code: E86.0 (3) HTN (hypertension) ICD Code: I10 Procedures none Brief History - From Admission Patient is a 86-year-old gentleman was quite pleasant and says that the last 2 weeks he is unable to eat. He notes no abdominal pain nausea or vomiting. Bloody stool. He does appear dehydrated with hypotension and acute kidney injury. He says for 3 weeks he just hasn't had appetite and his friend told him go to his doctor so he went and his doctor sent to the emergency room. Patient says otherwise he is doing "fine". He has no other medical complaints. On further exam patient does appear with elevated anion gap and with some evidence of acidosis probably from acute kidney injury. CBC/BMP: 04/29/16 0510 04/30/16 0615 Significant Findings Laboratory Tests Test 04/28/16 04/28/16 04/28/16 04/28/16 15:10 15:18 17:05 21:02 Neutrophils (%) (Auto) 77.9 % (16.0-70.0) Monocytes (%) (Auto) 9.1 % (0.0-8.0) Lymphocytes # (Auto) 0.8 TH/MM3 (1.0-4.8) Carbon Dioxide Level 20.2 MEQ/L (21.0-32.0) Anion Gap 20 MEQ/L (5-15) Blood Urea Nitrogen 45 MG/DL (7-18) Creatinine 2.30 MG/DL (0.60-1.30) Estimat Glomerular Filtration 27 ML/MIN (>89) Rate Lipase 406 U/L (73-393) Urine Protein 30 mg/dL (NEG-TRACE) Urine Ketones 15 mg/dL (NEG) Urine Occult Blood TRACE (NEG) Urine Squamous Epithelial 6-8 /hpf (0-5) Cells Blood Gas HCO3 13 mmol/L 14 mmol/L (22-26) (22-26) Blood Gas Base Excess -9.3 mmol/L -10.1 mmol/L (-2-2) (-2-2) Arterial Blood pH 7.50 (7.380-7.420) Arterial Blood Partial 17 mmHG (38-42) 25 mmHG (38-42) Pressure CO2 Arterial Blood Partial 122 mmHG Pressure O2 (61-120) Test 04/28/16 04/29/16 04/30/16 22:00 05:10 06:15 Chloride Level 110 MEQ/L 109 MEQ/L 108 MEQ/L (98-107) (98-107) (98-107) Carbon Dioxide Level 18.1 MEQ/L (21.0-32.0) Anion Gap 17 MEQ/L (5-15) Blood Urea Nitrogen 40 MG/DL (7-18) 37 MG/DL (7-18) 25 MG/DL (7-18) Creatinine 1.90 MG/DL 1.80 MG/DL 1.50 MG/DL (0.60-1.30) (0.60-1.30) (0.60-1.30) Estimat Glomerular Filtration 34 ML/MIN (>89) 36 ML/MIN (>89) 44 ML/MIN (>89) Rate Random Glucose 73 MG/DL (74-106) Calcium Level 7.9 MG/DL 8.4 MG/DL 8.3 MG/DL (8.5-10.1) (8.5-10.1) (8.5-10.1) Neutrophils (%) (Auto) 70.4 % (16.0-70.0) Monocytes (%) (Auto) 12.3 % (0.0-8.0) Lymphocytes # (Auto) 0.8 TH/MM3 (1.0-4.8) PE at Discharge GENERAL: This is a well-nourished, well-developed patient, in no apparent distress. CARDIOVASCULAR: Regular rate and rhythm without murmurs, gallops, or rubs. RESPIRATORY: Clear to auscultation. Breath sounds equal bilaterally. No wheezes , rales, or rhonchi. GASTROINTESTINAL: Abdomen soft, non-tender, nondistended. Normal active bowel sounds MUSCULOSKELETAL: Extremities without clubbing, cyanosis, or edema. NEURO: Alert & Oriented x4 to person, place, time, situation. Moves all ext x4 Pt update on day of discharge Patient seen and evaluated today in follow-up for anorexia. Dehydration resolved. Patient believes he will be able to eat today. Did discuss with patient that we had no functional difficulties. He is not psychotic. Patient will be discharged home Hospital Course This patient is a 6-year-old gentleman came in with acute dehydration secondary to not eating. He notes no functional difficulty. He was seen by speech therapy for cognitive and swallow assessments which he passed. Otherwise the patient did require IV hydration and was able to tolerate liquids. He did eat some food prior to his discharge Pt Condition on Discharge: Good Discharge Disposition: Disch w/ Home Health Serv Discharge Time: > 30 minutes Discharge Instructions DIET: Follow Instructions for: As Tolerated, No Restrictions Activities you can perform: Regular-No Restrictions Follow up Referrals: PCP Follow-up - 1 Week New Medications: Pantoprazole (Protonix) 40 Mg Tab 40 MG PO DAILY Reflux #30 Ref 0 TAB Continued Medications: Aspirin (Aspirin Low Dose) 81 Mg Chew 81 MG CHEW DAILY Ref 0 TAB Fluvastatin (Lescol) 20 Mg Cap 80 MG PO DAILY Cholesterol Management #60 Ref 0 CAP Discontinued Medications: Lisinopril (Lisinopril) 20 Mg Tab 20 MG PO DAILY #30 Ref 0 TAB Sunni Dowling MD Apr 30, 2016 10:21
== END 2016-04-30 11:23 | disposition home or self-care (01) | DRG 684 ==
LOC: PHED 14:44 → PHEDA 16:51 → PHEDH 20:51 → PH3B 04-29 08:21 → OBSVTOIN 04-29 10:52
PROVIDERS: ADMIT Hospitalist; ATTEND Hospitalist
DX: N17.9 Acute kidney failure, unspecified (principal); I95.9 Hypotension, unspecified; E86.0 Dehydration; R62.7 Adult failure to thrive; I10 Essential (primary) hypertension; E78.00 Pure hypercholesterolemia, unspecified
CPT/HCPCS: 36600; 70450; 71020; 74176; 80048; 80053; 80307; 81001; 82436; 82805; 83690; 85025; 93005; C9113; G0378; G8996-GN; G8997-GN; G8998-GN; G9168-GN; G9169-GN; G9170-GN; J7030

== ENCOUNTER 2016-06-17 13:40 | Inpatient (IN) | payer MEDICARE, OTHER ==
[~2016-06-17] VITALS: Ht 177.8 cm; Wt 71.6 kg
[~2016-06-17 13:40] MED LIST changes: +ASPI81CH37 CHEW; -LESC80TA; -LISI-591; +PROT40TA PO; -VIAG25TA; +[UNRECOGNIZED DRUG - CODE] PO
[2016-06-17 13:43] VITALS: BP 119/84; PULSE 120; RESP 18; O2SAT 99
--- NOTE | 2016-06-17 13:46 | PD ---
HPI Chief Complaint: generalized weakness Time Seen by Provider: 13:46 Travel History International Travel<30 days: No Contact w/Intl Traveler<30days: No Traveled to known affect area: No History of Present Illness HPI 86-year-old male was brought into the emergency room by EMS for generalized weakness. His daughter is here who flew from out of state to see him since he has been acting confused and sounding week over the past couple days. She had just landed when she found out that EMS had responded to a call to his house and found him on the floor sitting. He was awake. When the nurse asked him if he fell he said no but he thought the floor was more comfortable hence he decided to sit on the floor. Patient appears to be disheveled and dehydrated. The daughter says that she last spoke with him 2 weeks ago when already sounded a little bit confused. She is seeing him after few months and she thinks he has lost a tremendous amount of weight. He told her that he's not been eating since he does not like the taste of the food. He was slightly tachycardic upon arrival. Awake and answering questions although he is quite hard of hearing. He is oriented in time place and person. [facility] Past Medical History Narrative Medical List of his past medical, surgical, social and family history was reviewed from the nursing note. Cancer: No Cardiovascular Problems: Yes High Cholesterol: Yes Diabetes: No Diminished Hearing: Yes (NOT IN) Endocrine: No Genitourinary: No Hypertension: Yes Musculoskeletal: No Neurologic: No Psychiatric: No Reproductive: No Respiratory: No Immunizations Current: Yes Past Surgical History Cardiac Surgery: Yes (CARIDAC STENT) Tonsillectomy: Yes Other Surgery: Yes (KIDNEY STONES) Social History Alcohol Use: Yes (2 MARTINIS PER NIGHT) Tobacco Use: No (QUIT 50 YRSAGO) Substance Use: No Allergies-Medications (Allergen,Severity, Reaction): Coded Allergies: No Known Allergies (Verified , 06/17/16) Comments No known drug allergies. Reported Meds & Prescriptions Reported Meds & Active Scripts Active Narrative Medication List of his home medications reviewed from the nursing note. Review of Systems Except as stated in HPI: all other systems reviewed are Neg Physical Exam Narrative GENERAL: Elderly, moderate distress, disheveled, frail, hard of hearing SKIN: Focused skin assessment warm/dry. HEAD: Atraumatic. Normocephalic. EYES: Pupils equal and round. No scleral icterus. No injection or drainage. ENT: No nasal bleeding or discharge. Dry mucous membrane NECK: Trachea midline. No JVD. CARDIOVASCULAR: Regular rate and rhythm. No murmur appreciated. RESPIRATORY: No accessory muscle use. Clear to auscultation. Breath sounds equal bilaterally. GASTROINTESTINAL: Abdomen soft, non-tender, nondistended. Hepatic and splenic margins not palpable. MUSCULOSKELETAL: No obvious deformities. No clubbing. No cyanosis. No edema. NEUROLOGICAL: Awake and alert. No obvious cranial nerve deficits. Motor grossly within normal limits. Normal speech. PSYCHIATRIC: Appropriate mood and affect; insight and judgment normal. Data Data Last Documented VS Orders Electrocardiogram (06/17/16 13:57) Complete Blood Count With Diff (06/17/16 13:57) Comprehensive Metabolic Panel (06/17/16 13:57) Creatine Kinase (Cpk) (06/17/16 13:57) Prothrombin Time / Inr (Pt) (06/17/16 13:57) Troponin I (06/17/16 13:57) Thyroid Stimulating Hormone (06/17/16 13:57) Lactic Acid Sepsis Protocol (06/17/16 13:57) Urinalysis - C+S If Indicated (06/17/16 13:57) Blood Culture (06/17/16 13:57) Chest, Single Ap (06/17/16 13:57) Ct Brain W/O Iv Contrast(Rout) (06/17/16 13:57) Blood Glucose (06/17/16 13:57) Ecg Monitoring (06/17/16 13:57) Iv Access Insert/Monitor (06/17/16 13:57) Oximetry (06/17/16 13:57) Sodium Chloride 0.9% Flush (Ns Flush) (06/17/16 14:00) Sodium Chlor 0.9% 1000 Ml Inj (Ns 1000 M (06/17/16 13:57) Alcohol (Ethanol) (06/17/16 13:57) ^ Straight Catheter (06/17/16 15:15) Sodium Chlor 0.9% 1000 Ml Inj (Ns 1000 M (06/17/16 15:45) Piperacil-Tazo 4.5 Gm Premix (Zosyn 4.5 (06/17/16 15:45) Vancomycin Inj (Vancomycin Inj) (06/17/16 15:45) Urinary Catheter Insert/Apply (06/17/16 15:45) Admit Order (Ed Use Only) (06/17/16 16:45) Labs MDM Medical Decision Making Medical Screen Exam Complete: Yes Emergency Medical Condition: Yes Medical Record Reviewed: Yes Interpretation(s) Twelve-lead EKG was reviewed by me. Normal sinus rhythm, normal axis, right bundle branch block, tachycardia. Heart rate of 100 bpm. Differential Diagnosis Rhabdomyolysis, sepsis, generalized weakness, electrolyte abnormality, dehydration Narrative Course 3:43 PM blood test results are back. Patient is indeed dehydrated. However his troponin is slightly bumped as well. White count and lactic acid is elevated. I'll cover him with antibiotics for the time being. I have ordered 2 L of IV fluid bolus. Patient needs to be admitted. Awaiting for the hospitalist to call back. I do not have a UA. BUN/creatinine is elevated. I will order a Cope catheter as well. Chest x-ray and CT scan were within normal limits. Patient will need to be admitted. Awaiting for the hospitalist to call back. He would require placement eventually in my opinion. Critical Care Narrative Aggregate critical care time was 30 minutes. Time to perform other separately billable procedures was not included in the critical care time. My time did not include minutes spent treating any other patients simultaneously or on activities that did not directly contribute to the patient's treatment. The services I provided to this patient were to treat and/or prevent clinically significant deterioration that could result in: Failure to thrive, dehydration, sepsis, elevated troponin I provided critical care services requiring my management, as noted below: Chart data review, documentation time, medication orders and management, vital sign assessments/reviewing monitor data, ordering and reviewing lab tests, ordering and interpreting/reviewing x-rays and diagnostic studies, care of the patient and discussion of the patient with the admitting physicians. Procedures EKG Prior to Arrival: No Diagnosis Primary Impression: Dehydration Additional Impressions: Generalized weakness Elevated troponin I level Sepsis Qualified Code: A41.9 - Sepsis, due to unspecified organism Unsteady gait Renal insufficiency Failure to thrive in adult Admitting Information Admitting Physician Requests: Admit Presley Persaud MD Jun 17, 2016 13:46 CBC Comment AUTO DIFF Differential Total Cells 100 Counted Neutrophils % (Manual) 77 % Lymphocytes % 12 % Monocytes % 11 % Neutrophils # (Manual) 10.4 TH/MM3 Differential Comment FINAL DIFF MANUAL Platelet Estimate NORMAL Platelet Morphology Comment NORMAL Red Cell Morphology Comment NORMAL Prothrombin Time 17.9 SEC Prothromb Time International 1.6 RATIO Ratio Sodium Level 147 MEQ/L Potassium Level 3.6 MEQ/L Chloride Level 107 MEQ/L Carbon Dioxide Level 24.9 MEQ/L Anion Gap 15 MEQ/L Blood Urea Nitrogen 60 MG/DL Creatinine 2.36 MG/DL Estimat Glomerular Filtration 26 ML/MIN Rate Random Glucose 150 MG/DL Lactic Acid Level 2.9 mmol/L Calcium Level 9.5 MG/DL Total Bilirubin 2.3 MG/DL Aspartate Amino Transf 38 U/L (AST/SGOT) Alanine Aminotransferase 42 U/L (ALT/SGPT) Alkaline Phosphatase 91 U/L Total Creatine Kinase 164 U/L Troponin I 0.13 NG/ML Total Protein 7.8 GM/DL Albumin 3.6 GM/DL Thyroid Stimulating Hormone 0.775 uIU/ML 3rd Gen Ethyl Alcohol Level LESS THAN 3 MG/DL MDM Medical Decision Making Medical Screen Exam Complete: Yes Emergency Medical Condition: Yes Medical Record Reviewed: Yes Interpretation(s) Twelve-lead EKG was reviewed by me. Normal sinus rhythm, normal axis, right bundle branch block, tachycardia. Heart rate of 100 bpm. Differential Diagnosis Rhabdomyolysis, sepsis, generalized weakness, electrolyte abnormality, dehydration Narrative Course 3:43 PM blood test results are back. Patient is indeed dehydrated. However his troponin is slightly bumped as well. White count and lactic acid is elevated. I'll cover him with antibiotics for the time being. I have ordered 2 L of IV fluid bolus. Patient needs to be admitted. Awaiting for the hospitalist to call back. I do not have a UA. BUN/creatinine is elevated. I will order a Cope catheter as well. Chest x-ray and CT scan were within normal limits. Patient will need to be admitted. Awaiting for the hospitalist to call back. He would require placement eventually in my opinion. Critical Care Narrative Aggregate critical care time was 30 minutes. Time to perform other separately billable procedures was not included in the critical care time. My time did not include minutes spent treating any other patients simultaneously or on activities that did not directly contribute to the patient's treatment. The services I provided to this patient were to treat and/or prevent clinically significant deterioration that could result in: Failure to thrive, dehydration, sepsis, elevated troponin I provided critical care services requiring my management, as noted below: Chart data review, documentation time, medication orders and management, vital sign assessments/reviewing monitor data, ordering and reviewing lab tests, ordering and interpreting/reviewing x-rays and diagnostic studies, care of the patient and discussion of the patient with the admitting physicians. Procedures EKG Prior to Arrival: No Diagnosis Primary Impression: Dehydration Additional Impressions: Generalized weakness Elevated troponin I level Sepsis Qualified Code: A41.9 - Sepsis, due to unspecified organism Unsteady gait Renal insufficiency Failure to thrive in adult Admitting Information Admitting Physician Requests: it Presley Persaud MD Jun 17, 2016 13:46
[2016-06-17] MEDS ORDERED: SODIUM CHLOR 0.9% 1000 ML INJ 1,000 ML IV SCH (13:57)
[2016-06-17] MEDS ORDERED: SODIUM CHLORIDE 0.9% FLUSH 10 ML FLUSH IVF PRN (14:00)
[2016-06-17 14:22] LABS: AUTOMATED NEUTROPHIL # 10.8 TH/MM3 (1.8-7.7); BASOPHIL % 0.1 % (0.0-2.0); LYMPH % 9.1 % (9.0-44.0); LYMPHOCYTE # 1.2 TH/MM3 (1.0-4.8); MEAN CELL VOLUME 84.5 FL (80.0-100.0); MEAN CORPUSCULAR HEMOGLOBIN 28.2 PG (27.0-34.0); MEAN CORPUSCULAR HGB CONC 33.4 % (32.0-36.0); MONO % 10.9 % (0.0-8.0); NEUT % 79.9 % (16.0-70.0); PLATELET COUNT 265 TH/MM3 (150-450); RED BLOOD COUNT 5.21 MIL/MM3 (4.50-5.90); RED CELL DISTRIBUTION WIDTH 14.1 % (11.6-17.2); WHITE BLOOD COUNT 13.5 TH/MM3 (4.0-11.0)
[2016-06-17 14:23] LABS: HEMO FLAGS AUTO DIFF
[2016-06-17 14:26] VITALS: BP 119/85; PULSE 100; RESP 14; O2SAT 98
--- NOTE | 2016-06-17 14:33 | RADRPT ---
EXAM DATE/TIME: 06/17/2016 14:12 [facility] COMPARISON: CHEST PA & LAT, April 28, 2016, 17:12. INDICATIONS : Syncope. MEDICAL HISTORY : Hypertension. SURGICAL HISTORY : Coronary artery stent. ENCOUNTER: Initial ACUITY: 1 day PAIN SCORE: 0/10 LOCATION: Bilateral chest FINDINGS: A single view of the chest demonstrates the lungs to be symmetrically aerated without evidence of mas s, infiltrate or effusion. Marked left lower thoracic scoliosis with a very tortuous aorta The cardi omediastinal contours are unremarkable. Osseous structures are intact. CONCLUSION: The lungs are clear. Left lower thoracic scoliosis. Juan Manuel Ordaz MD on June 17, 2016 at 14:31 Board Certified Radiologist. This report was verified electronically.
[2016-06-17 14:34] LABS: INTERNATIONAL NORMALIZED RATIO 1.6 RATIO; PROTHROMBIN TIME - PATIENT 17.9 SEC (9.8-11.6)
--- NOTE | 2016-06-17 14:39 | RADRPT ---
EXAM DATE/TIME: 06/17/2016 14:31 [facility] COMPARISON: CT BRAIN W/O CONTRAST, April 28, 2016, 17:17. INDICATIONS : Fall, altered mental status. RADIATION DOSE: 39.18 CTDIvol (mGy) MEDICAL HISTORY : Cardiovascular disease. Hypertension. SURGICAL HISTORY : Tonsillectomy. ENCOUNTER: Initial ACUITY: 1 day PAIN SCALE: 0/10 LOCATION: cranial TECHNIQUE: Multiple contiguous axial images were obtained of the head. Using automated exposure control and adj ustment of the mA and/or kV according to patient size, radiation dose was kept as low as reasonably a chievable to obtain optimal diagnostic quality images. FINDINGS: There is marked central and cortical atrophy with dilatation of ventricular and sulcal spaces. There is no parenchymal hemorrhage, acute infarction or mass lesion identified. There are no extra-axial fluid collections appreciated. The posterior fossa is unremarkable with midline fourth ventricle. T he portion of the orbits and paranasal sinuses visualized are unremarkable. CONCLUSION: Stable examination. Juan Manuel Ordaz MD on June 17, 2016 at 14:37 Board Certified Radiologist. This report was verified electronically.
[2016-06-17 14:55] LABS: NEUTROPHIL # MANUAL DIFF 10.4 TH/MM3 (1.8-7.7); POLYS (SEG NEUTROPHILS) 77 % (16-70); WBC DIFF SAMPLE 100
[2016-06-17 14:56] LABS: PLATELET ESTIMATE SMEAR NORMAL (NORMAL); PLATELET MORPHOLOGY NORMAL (NORMAL); SCAN/DIFF FINAL DIFF MANUAL
[2016-06-17 15:09] LABS: ALKALINE PHOSPHATASE 91 U/L (45-117); ALT (GPT) 42 U/L (12-78); ANION GAP 15 MEQ/L (5-15); AST (GOT) 38 U/L (15-37); BICARBONATE 24.9 MEQ/L (21.0-32.0); BLOOD UREA NITROGEN 60 MG/DL (7-18); CHLORIDE 107 MEQ/L (98-107); CREATINE KINASE 164 U/L (39-308); GLOMERULAR FILTRATION RATE 26 ML/MIN (>89); POTASSIUM 3.6 MEQ/L (3.5-5.1); SODIUM (NA) 147 MEQ/L (136-145); TOTAL BILIRUBIN ADULT 2.3 MG/DL (0.2-1.0)
[2016-06-17] MEDS ORDERED: PIPERACIL-TAZO 4.5 GM PREMIX 100 ML IV ONE (15:45)
[2016-06-17] MEDS ORDERED: VANCOMYCIN INJ 1,000 MG in SODIUM CHLOR 0.9% 250 ML INJ 250 ML IV ONE (15:45)
[2016-06-17] MEDS ORDERED: SODIUM CHLOR 0.9% 1000 ML INJ 1,000 ML IV ONE (15:45)
[2016-06-17 16:12] LABS: LACTIC ACID GHOST NOT REPORTABLE
[2016-06-17 16:40] VITALS: BP 147/77; PULSE 105; RESP 25; TEMP 97.6
[2016-06-17 16:51] LABS: BACTERIA, URINE OCC /hpf; BLOOD, URINE MOD (NEG); GLUCOSE,URINE NEG (NEG); KETONE, URINE TRACE mg/dL (NEG); MUCUS URINE FEW /lpf (OCC); NITRITE,URINE NEG (NEG); PH, URINE 5.5 (5.0-8.5); SQUAMOUS EPITHELIAL CELL URINE <1 /hpf (0-5)
[2016-06-17 16:52] LABS: COMMENT (UR) CATH-CULTURE IND; CULTURE IF INDICATED CATH CULTURE IND; URINE COLOR DARK-BROWN (YELLW/STRAW)
[2016-06-17 17:07] VITALS: BP 124/73; PULSE 90; RESP 20; TEMP 97.6; O2SAT 96
[2016-06-17] MEDS ORDERED: ONDANSETRON HCL 4 MG/2 ML VIAL IV PUSH PRN (17:15)
[2016-06-17] MEDS ORDERED: ACETAMINOPHEN 325 MG TAB PO PRN (17:15)
[2016-06-17] MEDS: SODIUM CHLOR 0.9% 1000 ML INJ 1,000 ML IV SCH ×2 (17:15→22:56)
--- NOTE | 2016-06-17 17:33 | HHI.HP ---
[facility] Service [facility] Primary Care Physician Unknown Admission Diagnosis dehydration, failure to thrive, renal insufficiency, elevated tropon Diagnoses: (1) Dehydration Diagnosis: Principal (2) Acute kidney injury Diagnosis: Principal Chief Complaint: dehydration Travel History International Travel<30 Days: No Contact w/Intl Traveler <30 Da: No Traveled to Known Affected Are: No History of Present Illness patient is a 86 y/o male , poor historian, who was brought to ER with dehydration and confusion. the daughter says that he was found by the police last night driving his car around 1 am. when he was questioned by the police he couldn't remember why he was driving at that time. a social media job titles went to the house this morning to check on him but he didn't open the door. finally the social media job titles got into the house and found him sitting on the floor in his home bathroom. per ER, his daughter noticed some confusion about a couple of weeks ago when she talked to him. she says that he's lost some weight recently and apparently he has an appointment with ' specialist'. he lives alone. at the time of arrival to ER he was found dehydrated and tachycardic. Review of Systems ROS Limitations: Poor Historian Past Family Social History Past Medical History CAD dyslipidemia Past Surgical History cardiac stent placement Reported Medications aspirin lescol protonix Allergies: Coded Allergies: No Known Allergies (Verified , 06/17/16) Active Ordered Medications Current Medications Sodium Chloride 2 ml 2 ml UNSCH PRN IVF FLUSH AFTER USING IV ACCESS; Start at 14:00 Sodium Chloride 1,000 ml @ 1,000 mls/hr Q1H IV Last administered on 06/17/16 14:12; Start 06/17/16 at 13:57; Stop 06/17/16 at 14:56; Status DC Sodium Chloride 1,000 ml @ 999 mls/hr BOLUS ONCE IV Last administered on 06/17 14:30; Start 06/17/16 at 15:45; Stop 06/17/16 at 16:45; Status DC Piperacillin Sod/ Tazobactam Sod 100 ml @ 200 mls/hr ONCE ONCE IV Last administered on 06/17/16 15:57; Start 06/17/16 at 15:45; Stop 06/17/16 at 16:14 ; Status DC Vancomycin HCl/ Sodium Chloride (Vancomycin Inj/ NS 250 ml Inj) 250 ml @ 250 mls/hr ONCE ONCE IV Last administered on 06/17/16 16:00; Start 06/17/16 at 15 :45; Stop 06/17/16 at 16:44; Status DC Social History lives alone. Physical Exam Vital Signs Vital Signs Date Time Temp Pulse Resp B/P Pulse Ox O2 Delivery O2 Flow Rate FiO2 06/17/16 14:26 100 14 119/85 98 Room Air 06/17/16 13:54 118 18 Room Air 06/17/16 13:43 120 18 119/84 99 Physical Exam GENERAL: elderly male, in no respiratory distress but looks dry and confused SKIN: dry HEAD: dry oral mucosa EYES: Pupils equal round and reactive. Extraocular motions intact. No scleral icterus. No injection or drainage. ENT: Nose without bleeding, purulent drainage or septal hematoma. Throat without erythema, tonsillar hypertrophy or exudate. Uvula midline. Airway patent. NECK: Trachea midline. No JVD or lymphadenopathy. Supple, nontender, no meningeal signs. CARDIOVASCULAR: Regular rate and rhythm without murmurs, gallops, or rubs. RESPIRATORY: Clear to auscultation. Breath sounds equal bilaterally. No wheezes , rales, or rhonchi. GASTROINTESTINAL: Abdomen soft, non-tender, nondistended. No hepato-splenomegaly , or palpable masses. No guarding. MUSCULOSKELETAL: Extremities without clubbing, cyanosis, or edema. No joint tenderness, effusion, or edema noted. No calf tenderness. Negative Homans sign bilaterally. NEUROLOGICAL: Awake and alert. but confused. Laboratory Laboratory Tests Test 06/17/16 06/17/16 14:00 16:30 White Blood Count 13.5 Red Blood Count 5.21 Hemoglobin 14.7 Hematocrit 44.0 Mean Corpuscular Volume 84.5 Mean Corpuscular Hemoglobin 28.2 Mean Corpuscular Hemoglobin 33.4 Concent Red Cell Distribution Width 14.1 Platelet Count 265 Mean Platelet Volume 9.2 Neutrophils (%) (Auto) 79.9 Lymphocytes (%) (Auto) 9.1 Monocytes (%) (Auto) 10.9 Eosinophils (%) (Auto) 0.0 Basophils (%) (Auto) 0.1 Neutrophils # (Auto) 10.8 Lymphocytes # (Auto) 1.2 Monocytes # (Auto) 1.5 Eosinophils # (Auto) 0.0 Basophils # (Auto) 0.0 CBC Comment AUTO DIFF Differential Total Cells 100 Counted Neutrophils % (Manual) 77 Lymphocytes % 12 Monocytes % 11 Neutrophils # (Manual) 10.4 Differential Comment FINAL DIFF MANUAL Platelet Estimate NORMAL Platelet Morphology Comment NORMAL Red Cell Morphology Comment NORMAL Prothrombin Time 17.9 Prothromb Time International 1.6 Ratio Sodium Level 147 Potassium Level 3.6 Chloride Level 107 Carbon Dioxide Level 24.9 Anion Gap 15 Blood Urea Nitrogen 60 Creatinine 2.36 Estimat Glomerular Filtration 26 Rate Random Glucose 150 Lactic Acid Level 2.9 Calcium Level 9.5 Total Bilirubin 2.3 Aspartate Amino Transf 38 (AST/SGOT) Alanine Aminotransferase 42 (ALT/SGPT) Alkaline Phosphatase 91 Total Creatine Kinase 164 Troponin I 0.13 Total Protein 7.8 Albumin 3.6 Thyroid Stimulating Hormone 0.775 3rd Gen Ethyl Alcohol Level LESS THAN 3 Urine Color DARK-BROWN Urine Turbidity HAZY Urine pH 5.5 Urine Specific [place] 1.021 Urine Protein 30 Urine Glucose (UA) NEG Urine Ketones TRACE Urine Occult Blood MOD Urine Nitrite NEG Urine Bilirubin SMALL Urine Urobilinogen 4.0 Urine Leukocyte Esterase NEG Urine RBC 11 Urine WBC 1 Urine Squamous Epithelial <1 Cells Urine Amorphous Sediment OCC Urine Bacteria OCC Urine Mucus FEW Microscopic Urinalysis Comment CATH-CULTURE IND Date/Time Procedure Status Source Growth 06/17/16 16:30 Urine Culture Received Urine Catheterized Urine Pending 06/17/16 14:05 Aerobic Blood Culture Received Blood Peripheral Pending 06/17/16 14:05 Anaerobic Blood Culture Received Blood Peripheral Pending Result Diagram: 06/17/16 1400 06/17/16 1400 Imaging Last Impressions Head CT [id number] Signed Impressions: Service Date/Time: June 14:31 - CONCLUSION: Stable examination. Juan Manuel Ordaz MD Chest X-Ray 06/17/16 965 Signed Impressions: Service Date/Time: June 14:12 - CONCLUSION: The lungs are clear. Left lower thoracic scoliosis. Juan Manuel Ordaz MD EKG; sinus tachycardia with RBBB Assessment and Plan Assessment and Plan A/P - dehydration/ acute kidney injury superimposed on chronic renal insufficiency NPO for now- continue with IV hydration- place merrill cath- monitor I/O and renal function- consult ST -elevated troponin- likely due to renal failure- will continue aspirin - will trend the cardiac enzymes of note the findings were d/w the patient's daughter and she requested that the patient be treated conservatively without any further major work-up. -possible UTI; continue IV antibiotics and follow the cultures -DVT prophylaxis with SCD's -DNR status per my discussion with the patient's daughter. the option of palliative care was briefly d/w the patient's daughter. -case management consulted for dc planning. Code Status DNR per my discussion with the patient's daughter. Discussed Condition With ER physician and the patient's [id number]. Physician Certification 2 Midnight Certification Type: Admission for Inpatient Services Order for Inpatient Services The services are ordered in accordance with Medicare regulations or non- Medicare payer requirements, as applicable. In the case of services not specified as inpatient-only, they are appropriately provided as inpatient services in accordance with the 2-midnight benchmark. Estimated LOS (days): 2 days is the estimated time the patient will need to remain in the hospital, assuming treatment plan goals are met and no additional complications. Post-Hospital Plan: Not yet determined Jon Nelson MD Jun 17, 2016 17:33
[2016-06-17 19:55] VITALS: BP 127/69; PULSE 80; RESP 20; TEMP 97.2; O2SAT 100
--- NOTE | 2016-06-17 22:40 | EKG ---
Date Performed: 06/17/2016 Time Performed: 14:24:48 PTAGE: 86 years EKG: SINUS TACHYCARDIA WITH PACs RIGHT BUNDLE BRANCH BLOCK T-WAVE ABNORMALITY, CONSIDER ANTEROLA TERAL ISCHEMIA ABNORMAL ECG PREVIOUS TRACING : 04/28/2016 14.58 No significant change from previous tracing noted. DOCTOR: Nando Barragan Interpretating Date/Time 06/17/2016 22:39:29
[2016-06-17] MEDS: cefTRIAXone INJ 1,000 MG in SODIUM CHLORIDE 0.9% INJ 100 ML IV SCH (22:56)
[2016-06-18] VITALS (8 sets, daily range): BP systolic 119–137; BP diastolic 63–72; PULSE 62–98; RESP 18–36; TEMP 97.1–97.4; O2SAT 94–100
[2016-06-18] MEDS ORDERED: FOLIC ACID 1 MG TAB PO ONE (00:15)
[2016-06-18] MEDS ORDERED: FLUMAZENIL 0.5 MG/5 ML VIAL IV PUSH PRN (00:15)
[2016-06-18] MEDS ORDERED: LORazepam 2 MG TAB PO PRN (00:15)
[2016-06-18] MEDS ORDERED: LORazepam 1 MG TAB PO PRN (00:15)
[2016-06-18] MEDS ORDERED: LORazepam 2 MG/ML VIAL IV PUSH PRN ×4 (00:15)
[2016-06-18] MEDS ORDERED: THIAMINE HCL 100 MG TAB PO ONE (00:15)
[2016-06-18] MEDS ORDERED: LORazepam 0.5 MG TAB PO ONE (00:15)
[2016-06-18 04:06] LABS: AUTOMATED NEUTROPHIL # 7.3 TH/MM3 (1.8-7.7); BASOPHIL % 0.3 % (0.0-2.0); EOSINOPHIL % 0.4 % (0.0-4.0); HEMATOCRIT 38.4 % (39.0-51.0); LYMPH % 10.1 % (9.0-44.0); LYMPHOCYTE # 0.9 TH/MM3 (1.0-4.8); MEAN CELL VOLUME 85.5 FL (80.0-100.0); MEAN CORPUSCULAR HEMOGLOBIN 28.5 PG (27.0-34.0); MEAN CORPUSCULAR HGB CONC 33.3 % (32.0-36.0); NEUT % 79.2 % (16.0-70.0); PLATELET COUNT 165 TH/MM3 (150-450); RED CELL DISTRIBUTION WIDTH 14.3 % (11.6-17.2); WHITE BLOOD COUNT 9.2 TH/MM3 (4.0-11.0)
[2016-06-18 04:10] LABS: HEMO FLAGS AUTO DIFF
[2016-06-18 04:16] LABS: INTERNATIONAL NORMALIZED RATIO 1.5 RATIO; PROTHROMBIN TIME - PATIENT 17.2 SEC (9.8-11.6)
[2016-06-18 04:36] LABS: BICARBONATE 25.5 MEQ/L (21.0-32.0); POTASSIUM 3.3 MEQ/L (3.5-5.1)
[2016-06-18 05:19] LABS: PLATELET ESTIMATE SMEAR NORMAL (NORMAL); PLATELET MORPHOLOGY NORMAL (NORMAL); SCAN/DIFF AUTO DIFF CONFIRMED
[2016-06-18] MEDS: ASPIRIN 81 MG CHEW TAB CHEW SCH (09:00)
--- NOTE | 2016-06-18 10:20 | HHI.PR ---
Subjective Remarks resting comfortably with no distress. seems to be more alert today but still confused. d/w the RN and he was agitated at times over night. refused merrill cath. otherwise no other acute issues over night. Objective Vitals Vital Signs Date Time Temp Pulse Resp B/P Pulse Ox O2 Delivery O2 Flow Rate FiO2 06/18/16 04:00 97.3 80 24 137/72 100 06/18/16 00:00 97.4 98 20 119/67 100 06/17/16 19:55 97.2 80 20 127/69 100 06/17/16 17:07 97.6 90 20 124/73 96 Simple Mask 4 06/17/16 16:40 97.6 105 25 147/77 Nasal Cannula 2 95 06/17/16 14:26 100 14 119/85 98 Room Air 06/17/16 13:54 118 18 Room Air 06/17/16 13:43 120 18 119/84 99 I/O 06/17/16 06/17/16 06/17/16 06/18/16 06/18/16 06/18/16 07:00 15:00 23:00 07:00 15:00 23:00 Intake Total 120 ml 970 ml Output Total 200 ml Balance 120 ml 770 ml Intake Oral 120 ml IV Total 970 ml Output Urine Total 200 ml # Voids 1 # Bowel Movements 0 Result Diagram: 06/18/16 0349 06/18/16 0349 Imaging Last Impressions Head CT 06/17/[id number] Signed Impressions: Service Date/Time: June 14:31 - CONCLUSION: Stable examination. Juan Manuel Ordaz MD Chest X-Ray 06/17/16 1655 Signed Impressions: Service Date/Time: June 14:12 - CONCLUSION: The lungs are clear. Left lower thoracic scoliosis. Juan Manuel Ordaz MD Objective Remarks GENERAL: elderly male, in no apparent distress. CARDIOVASCULAR: Regular rate and regular rhythm without murmurs, gallops, or rubs. RESPIRATORY: Clear to auscultation. Breath sounds equal bilaterally. No wheezes , rales, or rhonchi. GASTROINTESTINAL: Abdomen soft, non-tender, nondistended. Normal, active bowel sounds MUSCULOSKELETAL: Extremities without clubbing, cyanosis, or edema. NEURO: more alert today but still not oriented to time. Procedures none Medications and IVs Current Medications Sodium Chloride 2 ml 2 ml UNSCH PRN IVF FLUSH AFTER USING IV ACCESS; Start at 14:00 Sodium Chloride 1,000 ml @ 1,000 mls/hr Q1H IV Last administered on 06/17/16 14:12; Start 06/17/16 at 13:57; Stop 06/17/16 at 14:56; Status DC Sodium Chloride 1,000 ml @ 999 mls/hr BOLUS ONCE IV Last administered on 06/17 14:30; Start 06/17/16 at 15:45; Stop 06/17/16 at 16:45; Status DC Piperacillin Sod/ Tazobactam Sod 100 ml @ 200 mls/hr ONCE ONCE IV Last administered on 06/17/16 15:57; Start 06/17/16 at 15:45; Stop 06/17/16 at 16:14 ; Status DC Vancomycin HCl 1000 mg/Sodium Chloride 250 ml @ 250 mls/hr ONCE ONCE IV Last administered on 06/17/16 16:00; Start 06/17/16 at 15:45; Stop 06/17/16 at 16:44 ; Status DC Sodium Chloride 1,000 ml @ 100 mls/hr Q10H IV Last administered on 06/17/16 22:56; Start 06/17/16 at 17:15 Ceftriaxone Sodium/Sodium Chloride (Rocephin Inj/NS Inj) 100 ml @ 200 mls/hr Q24H IV Last administered on 06/17/16 22:56; Start 06/17/16 at 22:00 Ondansetron HCl (Zofran Inj) 4 mg Q8HR PRN IV PUSH NAUSEA; Start 06/17/16 at 17 :15 Acetaminophen (Tylenol) 650 mg Q4H PRN PO FEEVR/PAIN; Start 06/17/16 at 17:15 Aspirin (Aspirin Chew) 81 mg DAILY CHEW ; Start 06/18/16 at 09:00 Flumazenil (Romazicon Inj) 0.2 mg Q1M PRN IV PUSH SEE LABEL COMMENTS; Start at 00:15 Lorazepam (Ativan) 1 mg Q4H PRN PO CIWA 8 - 10; Start 06/18/16 at 00:15 Lorazepam (Ativan Inj) 1 mg Q4H PRN IV PUSH CIWA 8 - 10; Start 06/18/16 at 00: 15 Lorazepam (Ativan) 2 mg Q2H PRN PO CIWA 11-14; Start 06/18/16 at 00:15 Lorazepam (Ativan Inj) 2 mg Q2H PRN IV PUSH CIWA 11-14; Start 06/18/16 at 00:15 Lorazepam (Ativan Inj) 2 mg Q1H PRN IV PUSH CIWA 15-20; Start 06/18/16 at 00:15 Lorazepam (Ativan Inj) 2 mg Q15M PRN IV PUSH CIWA > 20; Start 06/18/16 at 00:15 Folic Acid (Folate) 1 mg ONCE ONCE PO Last administered on 06/18/16 00:29; Start 06/18/16 at 00:15; Stop 06/18/16 at 00:16; Status DC Thiamine HCl (Vitamin B1) 100 mg ONCE ONCE PO Last administered on 06/18/16 00:28; Start 06/18/16 at 00:15; Stop 06/18/16 at 00:16; Status DC Lorazepam (Ativan) 0.5 mg ONCE ONCE PO Last administered on 06/18/16 00:28; Start 06/18/16 at 00:15; Stop 06/18/16 at 00:16; Status DC A/P Assessment and Plan - dehydration/ acute kidney injury superimposed on chronic renal insufficiency continue with IV hydration- refused merrill cath- monitor I/O and renal function - consulted ST -hypernatremia likely due to dehydration; continue IV fluid and monitor the sodium level. -elevated troponin- likely due to renal failure- will continue aspirin - of note the findings were previously d/w the patient's daughter and she requested that the patient be treated conservatively without any further major work-up. -possible UTI; continue IV antibiotics and follow the cultures -mild hypokalemia; will replace and monitor -DVT prophylaxis with SCD's -DNR status per my discussion with the patient's daughter. the option of palliative care was briefly d/w the patient's daughter. -case management consulted for dc planning. Discharge Planning dc planning to SNF. Jon Nelson MD Jun 18, 2016 10:20
[2016-06-18] MEDS ORDERED: POTASSIUM CHLORIDE 25 MEQ EFFERVESCENT TAB PO ONE (10:30)
[2016-06-18] MEDS: PANTOPRAZOLE SOD 40 MG DELAYED RELEASE TAB PO SCH (13:16)
[2016-06-18] MEDS: PRAVASTATIN SOD 40 MG TAB PO SCH (13:16)
[2016-06-18 13:22] LABS: BLOOD GAS BASE EXCESS -5.5 mmol/L (-2-2); BLOOD GAS CARBOXYHEMOGLOBIN 0.7 % (0-4); BLOOD GAS HCO3 18 mmol/L (22-26); BLOOD GAS METHEMOGLOBIN 0.9 % (0-2); BLOOD GAS O2 HGB SATURATION 98 % (90-100); BLOOD GAS OXYGEN CONTENT 17.2 Vol % (12.0-20.0); BLOOD GAS PCO2 24 mmHg (38-42); BLOOD GAS PO2 181 mmHg (61-120); BLOOD GAS TOTAL HGB 12.3 G/DL (12.0-16.0); TEMP CORR TO 98.6
[2016-06-18 13:23] LABS: CRITICAL VALUE YES; DRAW SITE LT RADIAL; LITER FLOW 4 L/M; NUMBER OF ARTERIAL PUNCTURES 2; OXYGEN DEVICE NASAL CANNULA; STAT YES; ULNAR PULSE PRESENT
[2016-06-18] MEDS ORDERED: RESP: ALBUTEROL 1.25 MG/3 ML NEB (PRN) NEB (13:45)
--- NOTE | 2016-06-18 14:06 | RADRPT ---
EXAM DATE/TIME: 06/18/2016 13:43 [facility] COMPARISON: No previous studies available for comparison. INDICATIONS : Short of breath, low O2 saturations MEDICAL HISTORY : Hypertension. SURGICAL HISTORY : Coronary artery stent. ENCOUNTER: Subsequent ACUITY: 2 days PAIN SCORE: 0/10 LOCATION: Bilateral chest FINDINGS: S. shaped thoracolumbar scoliosis. Degenerative changes of the spine. No definite consolidation or ef fusion. CONCLUSION: No significant change has occurred. Suresh Huynh MD on June 18, 2016 at 14:04 Board Certified Radiologist. This report was verified electronically.
[2016-06-18] MEDS: cefTRIAXone INJ 1,000 MG in SODIUM CHLORIDE 0.9% INJ 100 ML IV SCH (22:27)
[2016-06-18] MEDS: SODIUM CHLOR 0.9% 1000 ML INJ 1,000 ML IV SCH (22:27)
[2016-06-19 04:20] VITALS: BP 146/68; PULSE 63; RESP 18; TEMP 97.1; O2SAT 98
[2016-06-19] MEDS: SODIUM CHLOR 0.9% 1000 ML INJ 1,000 ML IV SCH (05:47)
[2016-06-19 08:00] VITALS: BP 144/86; PULSE 79; RESP 18; TEMP 97.3; O2SAT 99
[2016-06-19] MEDS: ASPIRIN 81 MG CHEW TAB CHEW SCH (09:00)
[2016-06-19 09:39] LABS: POTASSIUM 3.7 MEQ/L (3.5-5.1)
[2016-06-19] MEDS: PRAVASTATIN SOD 40 MG TAB PO SCH (09:58)
[2016-06-19] MEDS: PANTOPRAZOLE SOD 40 MG DELAYED RELEASE TAB PO SCH (09:58)
--- NOTE | 2016-06-19 11:07 | HHI.PR ---
Subjective Remarks he doesn't look as alert as yesterday. agitated over night and placed on restraints. d/w the RN. Objective Vitals Vital Signs Date Time Temp Pulse Resp B/P Pulse Ox O2 Delivery O2 Flow Rate FiO2 06/19/16 04:20 97.1 63 18 146/68 98 06/18/16 23:05 97.3 81 22 133/70 94 06/18/16 20:00 79 06/18/16 19:29 97.1 73 36 133/63 100 06/18/16 16:00 97.1 78 18 127/68 98 06/18/16 12:00 97.1 71 18 126/64 98 I/O 06/18/16 06/18/16 06/18/16 06/19/16 06/19/16 06/19/16 07:00 15:00 23:00 07:00 15:00 23:00 Intake Total 970 ml 0 ml 0 ml 506 ml Output Total 200 ml 400 ml Balance 770 ml 0 ml 0 ml 106 ml Intake Oral 0 ml 0 ml 0 ml IV Total 970 ml 506 ml Output Urine Total 200 ml 400 ml Stool Total 0 ml # Voids 2 2 0 # Bowel Movements 0 0 0 0 Result Diagram: 06/18/16 0349 06/19/16 0824 Imaging Last Impressions Chest X-Ray 06/18/16 1327 Signed Impressions: Service Date/Time: Saturday, June 18, 2016 13:43 - CONCLUSION: No significant change has occurred. Suresh Huynh MD Head CT 06/17/16 1357 Signed Impressions: Service Date/Time: June 14:31 - CONCLUSION: Stable examination. Juan Manuel Ordaz MD Objective Remarks GENERAL: elderly male, in no apparent distress. CARDIOVASCULAR: Regular rate and regular rhythm without murmurs, gallops, or rubs. RESPIRATORY: Clear to auscultation. Breath sounds equal bilaterally. No wheezes , rales, or rhonchi. GASTROINTESTINAL: Abdomen soft, non-tender, nondistended. Normal, active bowel sounds MUSCULOSKELETAL: Extremities without clubbing, cyanosis, or edema. NEURO: not as alert as yesterday-questionably oriented to place Procedures none Medications and IVs Current Medications Sodium Chloride 2 ml 2 ml UNSCH PRN IVF FLUSH AFTER USING IV ACCESS; Start at 14:00 Sodium Chloride 1,000 ml @ 1,000 mls/hr Q1H IV Last administered on 06/17/16 14:12; Start 06/17/16 at 13:57; Stop 06/17/16 at 14:56; Status DC Sodium Chloride 1,000 ml @ 999 mls/hr BOLUS ONCE IV Last administered on 06/17 14:30; Start 06/17/16 at 15:45; Stop 06/17/16 at 16:45; Status DC Piperacillin Sod/ Tazobactam Sod 100 ml @ 200 mls/hr ONCE ONCE IV Last administered on 06/17/16 15:57; Start 06/17/16 at 15:45; Stop 06/17/16 at 16:14 ; Status DC Vancomycin HCl 1000 mg/Sodium Chloride 250 ml @ 250 mls/hr ONCE ONCE IV Last administered on 06/17/16 16:00; Start 06/17/16 at 15:45; Stop 06/17/16 at 16:44 ; Status DC Sodium Chloride 1,000 ml @ 60 mls/hr [id number] IV Last administered on 05:47; Start 06/17/16 at 17:15 Ceftriaxone Sodium/Sodium Chloride (Rocephin Inj/NS Inj) 100 ml @ 200 mls/hr Q24H IV Last administered on 06/18/16 22:27; Start 06/17/16 at 22:00 Ondansetron HCl (Zofran Inj) 4 mg Q8HR PRN IV PUSH NAUSEA; Start 06/17/16 at 17 :15 Acetaminophen (Tylenol) 650 mg Q4H PRN PO FEEVR/PAIN; Start 06/17/16 at 17:15 Aspirin (Aspirin Chew) 81 mg DAILY CHEW Last administered on 06/19/16 09:00; Start 06/18/16 at 09:00 Flumazenil (Romazicon Inj) 0.2 mg Q1M PRN IV PUSH SEE LABEL COMMENTS; Start at 00:15 Lorazepam (Ativan) 1 mg Q4H PRN PO CIWA 8 - 10; Start 06/18/16 at 00:15 Lorazepam (Ativan Inj) 1 mg Q4H PRN IV PUSH CIWA 8 - 10; Start 06/18/16 at 00: 15 Lorazepam (Ativan) 2 mg Q2H PRN PO CIWA 11-14; Start 06/18/16 at 00:15 Lorazepam (Ativan Inj) 2 mg Q2H PRN IV PUSH CIWA 11-14 Last administered on 20:02; Start 06/18/16 at 00:15 Lorazepam (Ativan Inj) 2 mg Q1H PRN IV PUSH CIWA 15-20; Start 06/18/16 at 00:15 Lorazepam (Ativan Inj) 2 mg Q15M PRN IV PUSH CIWA > 20; Start 06/18/16 at 00:15 Folic Acid (Folate) 1 mg ONCE ONCE PO Last administered on 06/18/16 00:29; Start 06/18/16 at 00:15; Stop 06/18/16 at 00:16; Status DC Thiamine HCl (Vitamin B1) 100 mg ONCE ONCE PO Last administered on 06/18/16 00:28; Start 06/18/16 at 00:15; Stop 06/18/16 at 00:16; Status DC Lorazepam (Ativan) 0.5 mg ONCE ONCE PO Last administered on 06/18/16 00:28; Start 06/18/16 at 00:15; Stop 06/18/16 at 00:16; Status DC Potassium Bicarb/ Potassium Chloride (K-Lyte Cl Eff) 25 meq ONCE ONCE PO Last administered on 06/18/16 13:16; Start 06/18/16 at 10:30; Stop 06/18/16 at 10:54; Status DC Pantoprazole Sodium (Protonix) 40 mg DAILY PO Last administered on 06/19/16 09 :58; Start 06/18/16 at 10:30 Pravastatin Sodium (Pravachol) 40 mg DAILY PO Last administered on 06/19/16 09 :58; Start 06/18/16 at 11:00 Albuterol Sulfate (Albuterol Neb) 1.25 mg Q4HR NEB PRN NEB SHORTNESS OF BREATH ; Start 06/18/16 at 13:45 A/P Assessment and Plan A/P - dehydration/ acute kidney injury superimposed on chronic renal insufficiency- improved continue with IV hydration- refused merrill cath- monitor I/O and renal function - consulted ST -hypernatremia likely due to dehydration; change the IV fluid to D5W- continue to monitor. -elevated troponin- likely due to renal failure- will continue aspirin - of note the findings were previously d/w the patient's daughter and she requested that the patient be treated conservatively without any further major work-up. -abnormal UA with negative cultures; dc Abx -mild hypokalemia; replaced. -DVT prophylaxis with SCD's -DNR status per my discussion with the patient's daughter. the option of palliative care was previously briefly d/w the patient's daughter. -case management consulted for dc planning. -consulted PT. Discharge Planning will d/w the daughter again regarding palliative care/ hospice. Jon Nelson MD Jun 19, 2016 11:07
[2016-06-19] MEDS: DEXTROSE 5% IN WATE 1000ML INJ 1,000 ML IV SCH (11:57)
[2016-06-19 12:00] VITALS: BP 141/67; PULSE 82; RESP 18; TEMP 97.2; O2SAT 99
[2016-06-19 16:05] VITALS: BP 139/61; PULSE 68; RESP 18; TEMP 98.1; O2SAT 99
[2016-06-19 20:00] VITALS: PULSE 72
[2016-06-19 20:49] VITALS: BP 142/67; PULSE 73; RESP 12; TEMP 97.4; O2SAT 91
[2016-06-20 00:45] VITALS: BP 141/82; PULSE 70; RESP 14; TEMP 97; O2SAT 93
[2016-06-20] MEDS: DEXTROSE 5% IN WATE 1000ML INJ 1,000 ML IV SCH (04:15)
[2016-06-20 04:55] VITALS: BP 165/92; PULSE 41; RESP 12; TEMP 97.4; O2SAT 99
[2016-06-20 07:27] LABS: BICARBONATE 25.3 MEQ/L (21.0-32.0); POTASSIUM 3.1 MEQ/L (3.5-5.1)
[2016-06-20 07:47] VITALS: BP 150/81; PULSE 74; RESP 18; TEMP 97.3; O2SAT 99
[2016-06-20] MEDS: PRAVASTATIN SOD 40 MG TAB PO SCH (09:50)
[2016-06-20] MEDS: ASPIRIN 81 MG CHEW TAB CHEW SCH (09:50)
[2016-06-20] MEDS: PANTOPRAZOLE SOD 40 MG DELAYED RELEASE TAB PO SCH (09:50)
--- NOTE | 2016-06-20 10:36 | HHI.PR ---
Subjective Remarks lethargic and opens the eyes briefly to calling his name. overall clinically worse than yesterday. daughter and home hospice rn at the bedside. Objective Vitals Vital Signs Date Time Temp Pulse Resp B/P Pulse Ox O2 Delivery O2 Flow Rate FiO2 06/20/16 07:47 97.3 74 18 150/81 99 06/20/16 04:55 97.4 41 12 165/92 99 06/20/16 00:45 97.0 70 14 141/82 93 06/19/16 20:49 97.4 73 12 142/67 91 06/19/16 20:00 72 06/19/16 16:05 98.1 68 18 139/61 99 06/19/16 12:00 97.2 82 18 141/67 99 I/O 06/19/16 06/19/16 06/19/16 06/20/16 06/20/16 06/20/16 07:00 15:00 23:00 07:00 15:00 23:00 Intake Total 506 ml 120 ml 1238 ml 480 ml Output Total 400 ml 400 ml 300 ml Balance 106 ml -280 ml 938 ml 480 ml Intake Oral 0 ml 120 ml IV Total 506 ml 1238 ml 480 ml Output Urine Total 400 ml 400 ml 300 ml Stool Total 0 ml # Voids 0 2 # Bowel Movements 0 0 Result Diagram: 06/18/16 0349 06/20/16 0547 Imaging Last Impressions Chest X-Ray 06/18/16 1327 Signed Impressions: Service Date/Time: Saturday, June 18, 2016 13:43 - CONCLUSION: No significant change has occurred. Suresh Huynh MD Head CT 06/17/16 1357 Signed Impressions: Service Date/Time: June 14:31 - CONCLUSION: Stable examination. Juan Manuel Ordaz MD Objective Remarks GENERAL: elderly male, in no apparent distress. CARDIOVASCULAR: Regular rate and regular rhythm without murmurs, gallops, or rubs. RESPIRATORY: Clear to auscultation. Breath sounds equal bilaterally. No wheezes , rales, or rhonchi. GASTROINTESTINAL: Abdomen soft, non-tender, nondistended. Normal, active bowel sounds MUSCULOSKELETAL: Extremities without clubbing, cyanosis, or edema. NEURO: not as alert as yesterday-questionably oriented to place Procedures none Medications and IVs Current Medications Sodium Chloride 2 ml 2 ml UNSCH PRN IVF FLUSH AFTER USING IV ACCESS; Start at 14:00 Sodium Chloride 1,000 ml @ 1,000 mls/hr Q1H IV Last administered on 06/17/16 14:12; Start 06/17/16 at 13:57; Stop 06/17/16 at 14:56; Status DC Sodium Chloride 1,000 ml @ 999 mls/hr BOLUS ONCE IV Last administered on 06/17 14:30; Start 06/17/16 at 15:45; Stop 06/17/16 at 16:45; Status DC Piperacillin Sod/ Tazobactam Sod 100 ml @ 200 mls/hr ONCE ONCE IV Last administered on 06/17/16 15:57; Start 06/17/16 at 15:45; Stop 06/17/16 at 16:14 ; Status DC Vancomycin HCl 1000 mg/Sodium Chloride 250 ml @ 250 mls/hr ONCE ONCE IV Last administered on 06/17/16 16:00; Start 06/17/16 at 15:45; Stop 06/17/16 at 16:44 ; Status DC Sodium Chloride 1,000 ml @ 60 mls/hr [id number] IV Last administered on 05:47; Start 06/17/16 at 17:15; Stop 06/19/16 at 11:00; Status DC Ceftriaxone Sodium/Sodium Chloride (Rocephin Inj/NS Inj) 100 ml @ 200 mls/hr Q24H IV Last administered on 06/18/16 22:27; Start 06/17/16 at 22:00; Stop at 11:08; Status DC Ondansetron HCl (Zofran Inj) 4 mg Q8HR PRN IV PUSH NAUSEA; Start 06/17/16 at 17 :15 Acetaminophen (Tylenol) 650 mg Q4H PRN PO FEEVR/PAIN; Start 06/17/16 at 17:15 Aspirin (Aspirin Chew) 81 mg DAILY CHEW Last administered on 06/20/16 09:50; Start 06/18/16 at 09:00 Flumazenil (Romazicon Inj) 0.2 mg Q1M PRN IV PUSH SEE LABEL COMMENTS; Start at 00:15 Lorazepam (Ativan) 1 mg Q4H PRN PO CIWA 8 - 10; Start 06/18/16 at 00:15 Lorazepam (Ativan Inj) 1 mg Q4H PRN IV PUSH CIWA 8 - 10; Start 06/18/16 at 00: 15 Lorazepam (Ativan) 2 mg Q2H PRN PO CIWA 11-14; Start 06/18/16 at 00:15 Lorazepam (Ativan Inj) 2 mg Q2H PRN IV PUSH CIWA 11-14 Last administered on 20:02; Start 06/18/16 at 00:15 Lorazepam (Ativan Inj) 2 mg Q1H PRN IV PUSH CIWA 15-20; Start 06/18/16 at 00:15 Lorazepam (Ativan Inj) 2 mg Q15M PRN IV PUSH CIWA > 20; Start 06/18/16 at 00:15 Folic Acid (Folate) 1 mg ONCE ONCE PO Last administered on 06/18/16 00:29; Start 06/18/16 at 00:15; Stop 06/18/16 at 00:16; Status DC Thiamine HCl (Vitamin B1) 100 mg ONCE ONCE PO Last administered on 06/18/16 00:28; Start 06/18/16 at 00:15; Stop 06/18/16 at 00:16; Status DC Lorazepam (Ativan) 0.5 mg ONCE ONCE PO Last administered on 06/18/16 00:28; Start 06/18/16 at 00:15; Stop 06/18/16 at 00:16; Status DC Potassium Bicarb/ Potassium Chloride (K-Lyte Cl Eff) 25 meq ONCE ONCE PO Last administered on 06/18/16 13:16; Start 06/18/16 at 10:30; Stop 06/18/16 at 10:54; Status DC Pantoprazole Sodium (Protonix) 40 mg DAILY PO Last administered on 06/20/16 09 :50; Start 06/18/16 at 10:30 Pravastatin Sodium (Pravachol) 40 mg DAILY PO Last administered on 06/20/16 09 :50; Start 06/18/16 at 11:00 Albuterol Sulfate 1.25 mg 1.25 mg Q4HR NEB PRN NEB SHORTNESS OF BREATH; Start 06/18/16 at 13:45 Dextrose (D5W 1000 ml Inj) 1,000 ml @ 60 mls/hr Q31V12H IV Last administered on 06/20/16t 04:15; Start 06/19/16 at 11:00 A/P Assessment and Plan A/P - dehydration/ acute kidney injury superimposed on chronic renal insufficiency- continue with IV hydration- refused merrill cath- monitor I/O and renal function - consulted ST -hypernatremia likely due to dehydration; changed the IV fluid to D5W- continue to monitor. -elevated troponin- likely due to renal failure- will continue aspirin - of note the findings were previously d/w the patient's daughter and she requested that the patient be treated conservatively without any further major work-up. -abnormal UA with negative cultures; dc'ed Abx -DVT prophylaxis with SCD's -DNR status per my discussion with the patient's daughter. patient is clinically worse than yesterday. d/w the daughter and the home hospice rn at the bedside. Discharge Planning dc to hospice; care center vs inpatient later this afternoon- pending the bed availability. d/w the patient's daughter and the home hospice rn. time spent 31 min. Jon Nelson MD Jun 20, 2016 10:36
--- NOTE | 2016-06-20 10:38 | HHI.DS ---
Discharge Summary Admission Date Jun 17, 2016 at 16:46 Discharge Date: Jun 20, 2016 Admitting Diagnosis dehydration, failure to thrive, renal insufficiency, elevated tropon (1) Dehydration ICD Code: E86.0 Diagnosis: Principal (2) Acute kidney injury ICD Code: N17.9 Diagnosis: Principal Procedures none Brief History - From Admission patient is a 86 y/o male , poor historian, who was brought to ER with dehydration and confusion. the daughter says that he was found by the police last night driving his car around 1 am. when he was questioned by the police he couldn't remember why he was driving at that time. a social service technician went to the house this morning to check on him but he didn't open the door. finally the social service technician got into the house and found him sitting on the floor in his home bathroom. per ER, his daughter noticed some confusion about a couple of weeks ago when she talked to him. she says that he's lost some weight recently and apparently he has an appointment with ' specialist'. he lives alone. at the time of arrival to ER he was found dehydrated and tachycardic. CBC/BMP: 06/18/16 0349 06/20/16 0547 Significant Findings Laboratory Tests Test 06/17/16 06/17/16 06/17/16 06/17/16 14:00 14:45 16:30 21:00 White Blood Count 13.5 TH/MM3 (4.0-11.0) Neutrophils (%) (Auto) 79.9 % (16.0-70.0) Monocytes (%) (Auto) 10.9 % (0.0-8.0) Neutrophils # (Auto) 10.8 TH/MM3 (1.8-7.7) Monocytes # (Auto) 1.5 TH/MM3 (0-0.9) Neutrophils % (Manual) 77 % (16-70) Monocytes % 11 % (0-8) Neutrophils # (Manual) 10.4 TH/MM3 (1.8-7.7) Prothrombin Time 17.9 SEC (9.8-11.6) Sodium Level 147 MEQ/L (136-145) Blood Urea Nitrogen 60 MG/DL (7-18) Creatinine 2.36 MG/DL (0.60-1.30) Estimat Glomerular Filtration 26 ML/MIN (>89) Rate Random Glucose 150 MG/DL (74-106) Lactic Acid Level 2.9 mmol/L 4.0 mmol/L (0.4-2.0) (0.4-2.0) Total Bilirubin 2.3 MG/DL (0.2-1.0) Aspartate Amino Transf 38 U/L (15-37) (AST/SGOT) Troponin I 0.13 NG/ML 0.17 NG/ML (0.02-0.05) (0.02-0.05) Urine Color DARK-BROWN (YELLW/STRAW) Urine Turbidity HAZY (CLEAR) Urine Protein 30 mg/dL (NEG-TRACE) Urine Ketones TRACE mg/dL (NEG) Urine Occult Blood MOD (NEG) Urine Bilirubin SMALL (NEG) Urine Urobilinogen 4.0 MG/DL (LESS THAN 2.0) Urine RBC 11 /hpf (0-3) Urine Bacteria OCC /hpf (NONE) Urine Mucus FEW /lpf (OCC) Test 06/18/16 06/18/16 06/18/16 06/19/16 03:49 12:17 13:12 08:24 Hemoglobin 12.8 GM/DL (13.0-17.0) Hematocrit 38.4 % (39.0-51.0) Neutrophils (%) (Auto) 79.2 % (16.0-70.0) Monocytes (%) (Auto) 10.0 % (0.0-8.0) Lymphocytes # (Auto) 0.9 TH/MM3 (1.0-4.8) Prothrombin Time 17.2 SEC (9.8-11.6) Sodium Level 153 MEQ/L 153 MEQ/L (136-145) (136-145) Potassium Level 3.3 MEQ/L (3.5-5.1) Chloride Level 119 MEQ/L 124 MEQ/L (98-107) (98-107) Blood Urea Nitrogen 48 MG/DL (7-18) 35 MG/DL (7-18) Creatinine 1.60 MG/DL (0.60-1.30) Estimat Glomerular Filtration 41 ML/MIN (>89) 63 ML/MIN (>89) Rate Calcium Level 7.7 MG/DL 8.0 MG/DL (8.5-10.1) (8.5-10.1) Troponin I 0.17 NG/ML (0.02-0.05) Ammonia LESS THAN 10 MCMOL/L (11-32) Blood Gas HCO3 18 mmol/L (22-26) Blood Gas Base Excess -5.5 mmol/L (-2-2) Arterial Blood pH 7.48 (7.380-7.420) Arterial Blood Partial 24 mmHg (38-42) Pressure CO2 Arterial Blood Partial 181 mmHg Pressure O2 (61-120) Random Glucose 72 MG/DL (74-106) Test 06/20/16 05:47 Sodium Level 153 MEQ/L (136-145) Potassium Level 3.1 MEQ/L (3.5-5.1) Chloride Level 119 MEQ/L (98-107) Blood Urea Nitrogen 28 MG/DL (7-18) Estimat Glomerular Filtration 63 ML/MIN (>89) Rate Calcium Level 8.3 MG/DL (8.5-10.1) Imaging Last Impressions Chest X-Ray 06/18/16 1327 Signed Impressions: Service Date/Time: Saturday, June 18, 2016 13:43 - CONCLUSION: No significant change has occurred. Suresh Huynh MD Head CT 06/17/16 1357 Signed Impressions: Service Date/Time: June 14:31 - CONCLUSION: Stable examination. Juan Manuel Ordaz MD PE at Discharge GENERAL: elderly male, in no apparent distress. CARDIOVASCULAR: Regular rate and regular rhythm without murmurs, gallops, or rubs. RESPIRATORY: Clear to auscultation. Breath sounds equal bilaterally. No wheezes , rales, or rhonchi. GASTROINTESTINAL: Abdomen soft, non-tender, nondistended. Normal, active bowel sounds MUSCULOSKELETAL: Extremities without clubbing, cyanosis, or edema. NEURO: not as alert as yesterday-questionably oriented to place Hospital Course - dehydration/ acute kidney injury superimposed on chronic renal insufficiency- continue with IV hydration- refused merrill cath- monitor I/O and renal function - consulted ST -hypernatremia likely due to dehydration; changed the IV fluid to D5W- continue to monitor. -elevated troponin- likely due to renal failure- will continue aspirin - of note the findings were previously d/w the patient's daughter and she requested that the patient be treated conservatively without any further major work-up. -abnormal UA with negative cultures; dc'ed Abx -DVT prophylaxis with SCD's -DNR status per my discussion with the patient's daughter. patient is clinically worse than yesterday. d/w the daughter and the rcis at the bedside. Pt Condition on Discharge: Deteriorating Discharge Disposition: Hospice/Med Facility Discharge Time: > 30 minutes Jon Nelson MD Jun 20, 2016 10:38
[2016-06-20 12:31] VITALS: BP 139/74; PULSE 73; RESP 19; TEMP 97.2; O2SAT 100
[2016-06-20] MEDS ORDERED: LORazepam 2 MG/ML VIAL IV PRN ×2 (15:00)
[2016-06-20] MEDS ORDERED: ONDANSETRON HCL 4 MG/2 ML VIAL IV PUSH PRN (15:00)
[2016-06-20] MEDS ORDERED: SODIUM CHLORIDE 0.9% FLUSH 10 ML FLUSH IVF PRN (15:00)
[2016-06-20] MEDS ORDERED: MORPHINE SULFATE 4 MG/ML INJ IV PRN ×2 (15:00)
[2016-06-20] MEDS ORDERED: BISACODYL 10 MG SUPP RECTAL PRN (15:00)
[2016-06-20] MEDS ORDERED: ACETAMINOPHEN 650 MG SUPP RECTAL PRN (15:00)
[2016-06-20 16:07] VITALS: BP 137/111; PULSE 64; RESP 18; TEMP 97.2; O2SAT 100
[2016-06-20 20:00] VITALS: BP 135/69; PULSE 70; RESP 14; TEMP 97.1; O2SAT 100
[2016-06-20] MEDS: SODIUM CHLORIDE 0.9% FLUSH 10 ML FLUSH IVF SCH (21:00)
[2016-06-21] VITALS: BP 151/99; PULSE 84; RESP 18; TEMP 97.2; O2SAT 100
[2016-06-21 04:00] VITALS: BP 134/73; PULSE 71; RESP 16; TEMP 97.3; O2SAT 95
[2016-06-21 08:00] VITALS: BP 135/88; PULSE 60; RESP 15; TEMP 97.1; O2SAT 100
[2016-06-21 08:13] VITALS: O2SAT 99
[2016-06-21] MEDS: SODIUM CHLORIDE 0.9% FLUSH 10 ML FLUSH IVF SCH (08:52)
[2016-06-21 12:00] VITALS: BP 138/78; PULSE 67; RESP 16; TEMP 97.3; O2SAT 99
== END 2016-06-21 12:06 | disposition hospice, inpatient (51) | DRG 641 ==
LOC: NEPE 13:40 → NEDA 16:46 → N04A 19:55
PROVIDERS: ADMIT Family Medicine; ATTEND Family Medicine
DX: E86.0 Dehydration (principal); N17.9 Acute kidney failure, unspecified; E87.0 Hyperosmolality and hypernatremia; R62.7 Adult failure to thrive; I12.9 Hypertensive chronic kidney disease with stage 1 through stage 4 chronic kidney disease, or unspecified chronic kidney disease; N18.9 Chronic kidney disease, unspecified; R74.8 Abnormal levels of other serum enzymes; E87.6 Hypokalemia; Z66 Do not resuscitate; Z51.5 Encounter for palliative care; I25.10 Atherosclerotic heart disease of native coronary artery without angina pectoris; Z95.5 Presence of coronary angioplasty implant and graft; E78.5 Hyperlipidemia, unspecified; Z79.82 Long term (current) use of aspirin; H91.90 Unspecified hearing loss, unspecified ear; Z78.1 Physical restraint status; Z87.891 Personal history of nicotine dependence
CPT/HCPCS: 36600; 70450; 71010; 76937; 80048; 80053; 80307; 81001; 82140; 82550; 82607; 82805; 83605; 84443; 84484; 85007; 85025; 85027; 85610; 87040; 87086; 93005; 96361; 96374; 96375; J0696; J2060; J2543; J3370; J7030; J7050; J7070; P9612